=== PATIENT | female | born 1935 | race Caucasian/White ===

== ENCOUNTER → 2017-01-03 | Outpatient (CLI) | payer OTHER ==
[~2017-01-03] MED LIST: ALLO300T PO; ALPR0.254 PO; ASCO500T6 PO; ASCO500T8 PO; ASPI-650 PO; ATOR40TA78 PO; CEFD300C2 PO; CIPR500T87 PO; CLOP75TA PO; COLC0.6T37 PO; DOCU-30 PO; ENOX40SY4 SQ; FERR325T20 PO; HYDR-3138 PO; HYDR-3241 PO; LORA-446 PO; LOVA20TA2 PO; METF500T4 PO; METH16TA2 PO; METO50TA82 PO; METR500T PO; NAPR220C2 PO; OMEP-110 PO; OXYC-229 PO; PANT40TA3 PO; PANT40TA5 PO; PRED10TA PO; PRED20TA PO; SENN1TAB7 PO; TRAM-28 PO; ZOLP6.253 PO
== END | disposition home or self-care (01) ==
LOC: CARD 13:54
PROVIDERS: ATTEND Internal Medicine Pulmonary Disease
DX: R06.00 Dyspnea, unspecified (principal)
CPT/HCPCS: 94060; 94726; 94729

== ENCOUNTER 2017-03-05 14:51 | Inpatient (IN) | payer OTHER ==
[~2017-03-05] VITALS: Ht 154.9 cm; Wt 80.8 kg
[~2017-03-05 14:51] MED LIST changes: +AMLO5TAB2 PO; +BUPR-173 PO; -CEFD300C2 PO; +CEFD300C37 PO; +GABA-826 PO; +HYDR-883 PO; +LACT1CAP24 PO; +NAPR500T3 PO; +NITR0.4T SL
[2017-03-05] MEDS ORDERED: SODIUM CHLORIDE 0.9% 1,000 ML IV ONE (15:19)
[2017-03-05] MEDS ORDERED: SODIUM CHLORIDE FLUSH 10ML SYR IVF ONE (15:30)
[2017-03-05] MEDS ORDERED: ONDANSETRON 2MG/ML, 2ML IVPush ONE (15:30)
[2017-03-05] MEDS ORDERED: PANTOPRAZOLE 40 MG IV IVPush ONE (15:30)
[2017-03-05] MEDS ORDERED: PANTOPRAZOLE 40 MG IV ONE (15:46)
[2017-03-05] MEDS ORDERED: MORPHINE SULFATE 4 MG/ML, 1ML ONE ×2 (15:46→17:39)
[2017-03-05] MEDS ORDERED: ONDANSETRON 2MG/ML, 2ML ONE (15:47)
[2017-03-05] MEDS: MORPHINE SULFATE 4 MG/ML, 1ML IVPush PRN ×2 (15:52→17:44)
[2017-03-05 15:53] LABS: BLOOD UREA NITROGEN 39 mg/dL (7-18)
[2017-03-05 15:55] LABS: ASPARTATE AMINO TRANSFERASE 18 U/L (15-37)
[2017-03-05] MEDS ORDERED: SULF1TAB3 PO (16:32)
[2017-03-05] MEDS ORDERED: OMNIPAQUE 350 MG/ML, 100ML BOTTLE ONE (16:47)
[2017-03-05] MEDS ORDERED: BISACODYL 10 MG SUPP PR PRN (18:00)
[2017-03-05] MEDS ORDERED: ONDANSETRON 2MG/ML, 2ML IVPush PRN (18:00)
[2017-03-05] MEDS: INSULIN ASPART 100 UNITS/ML, PEN SQ-INSULIN SCH ×2 (18:00→21:00)
[2017-03-05] MEDS ORDERED: ACETAMINOPHEN 325 MG TABLET PO PRN (18:00)
[2017-03-05] MEDS ORDERED: PANTOPRAZOLE 40 MG IV IVPush SCH (18:00)
[2017-03-05] MEDS ORDERED: HYDROcodone/APAP 5/325 TABLET PO PRN (18:00)
[2017-03-05] MEDS ORDERED: NITROGLYCERIN 0.4 MG BOTTLE (25 TABS) SL PRN (18:00)
[2017-03-05 19:19] VITALS: BP 135/77
[2017-03-05 20:00] VITALS: BP 135/77
[2017-03-05] MEDS: SODIUM CHLORIDE 0.9% 1,000 ML IV SCH (20:31)
[2017-03-05] MEDS: METOPROLOL TARTRATE 50 MG TABLET PO SCH (20:32)
[2017-03-05] MEDS: LOVASTATIN 40 MG TABLET PO SCH (20:32)
[2017-03-05] MEDS: LACTOBACILLUS CHEW TABLET PO SCH (20:32)
[2017-03-05] MEDS ORDERED: CEFDINIR 300 MG CAPSULE PO SCH (21:00)
[2017-03-05] MEDS: ZOLPIDEM 5MG TABLET PO SCH (21:22)
[2017-03-06] VITALS (7 sets, daily range): BP systolic 111–153; BP diastolic 58–78
[2017-03-06 06:15] LABS: ASPARTATE AMINO TRANSFERASE 15 U/L (15-37); BLOOD UREA NITROGEN 34 mg/dL (7-18)
[2017-03-06] MEDS: INSULIN ASPART 100 UNITS/ML, PEN SQ-INSULIN SCH ×4 (07:00→21:32)
[2017-03-06] MEDS: LACTOBACILLUS CHEW TABLET PO SCH ×2 (08:57→20:35)
[2017-03-06] MEDS: COLCHICINE 0.6 MG TABLET PO SCH (08:57)
[2017-03-06] MEDS: BUPROPION SR 100 MG TABLET PO SCH (08:57)
[2017-03-06] MEDS: AMLODIPINE 5 MG TABLET PO SCH (08:57)
[2017-03-06] MEDS: GABAPENTIN 100 MG CAPSULE PO SCH (08:57)
[2017-03-06] MEDS: METOPROLOL TARTRATE 50 MG TABLET PO SCH ×2 (08:58→20:37)
[2017-03-06] MEDS: ALLOPURINOL 300 MG TABLET PO SCH (08:58)
[2017-03-06] MEDS ORDERED: methylPREDNISolone SOD SUCC 125 MG/2 ML IVPush ONE (09:00)
[2017-03-06] MEDS ORDERED: DIPHENHYDRAMINE 50 MG/ML, 1ML IVPush ONE (09:00)
[2017-03-06] MEDS: SODIUM CHLORIDE 0.9% 1,000 ML IV SCH (09:02)
[2017-03-06] MEDS: CEFTRIAXONE PMX 1GM/50ML 50 ML IV SCH ×2 (09:06→20:12)
[2017-03-06] MEDS: PANTOPRAZOLE 80 MG in SODIUM CHLORIDE 0.9% 100 ML IV SCH ×2 (10:23→21:32)
[2017-03-06] MEDS ORDERED: PHENYLEPHRINE 10 MG/ML ONE (13:52)
[2017-03-06] MEDS ORDERED: SUCCINYLCHOLINE 20 MG/ML, 10ML ONE (13:52)
[2017-03-06] MEDS ORDERED: PROPOFOL 10 MG/ML, 20ML ONE (13:52)
[2017-03-06] MEDS ORDERED: FENTANYL PF 100 MCG/2ML ONE (15:20)
[2017-03-06] MEDS ORDERED: FENTANYL PF 100 MCG/2ML IV PRN (15:30)
[2017-03-06] MEDS: LOVASTATIN 40 MG TABLET PO SCH (20:35)
[2017-03-06] MEDS: ZOLPIDEM 5MG TABLET PO SCH (21:35)
[2017-03-07 01:47] VITALS: BP 158/71
[2017-03-07 05:55] LABS: BLOOD UREA NITROGEN 17 mg/dL (7-18)
[2017-03-07 06:46] VITALS: BP 114/58
[2017-03-07] MEDS: INSULIN ASPART 100 UNITS/ML, PEN SQ-INSULIN SCH ×2 (07:00→11:00)
[2017-03-07] MEDS: CEFTRIAXONE PMX 1GM/50ML 50 ML IV SCH (07:55)
[2017-03-07] MEDS: METOPROLOL TARTRATE 50 MG TABLET PO SCH (07:56)
[2017-03-07] MEDS: LACTOBACILLUS CHEW TABLET PO SCH (07:56)
[2017-03-07] MEDS: AMLODIPINE 5 MG TABLET PO SCH (07:56)
[2017-03-07] MEDS: COLCHICINE 0.6 MG TABLET PO SCH (07:56)
[2017-03-07] MEDS: GABAPENTIN 100 MG CAPSULE PO SCH (07:56)
[2017-03-07] MEDS: BUPROPION SR 100 MG TABLET PO SCH (07:57)
[2017-03-07] MEDS: ALLOPURINOL 300 MG TABLET PO SCH (07:57)
[2017-03-07] MEDS: PANTOPRAZOLE 80 MG in SODIUM CHLORIDE 0.9% 100 ML IV SCH (09:11)
[2017-03-07] MEDS: SODIUM CHLORIDE 0.9% 1,000 ML IV SCH (11:16)
[2017-03-07] MEDS ORDERED: PANTOPRAZOLE 40 MG IV IVPush SCH (12:00)
[2017-03-07 12:42] VITALS: BP 139/84
[2017-03-07] MEDS ORDERED: PANT40TA5 PO (13:45)
[2017-03-07] MEDS ORDERED: PANTOPROZOLE 40MG TABLET PO SCH (21:00)
== END 2017-03-07 16:09 | disposition home or self-care (01) | DRG 377 ==
LOC: ED 15:17 → EDIP 17:07 → 3NE 18:05
PROVIDERS: ADMIT Internal Medicine
PROC: 0DB58ZX Excision of Esophagus, Via Natural or Artificial Opening Endoscopic, Diagnostic (ICD-10-PCS; 2017-03-06)
PROC: 0DB68ZX Excision of Stomach, Via Natural or Artificial Opening Endoscopic, Diagnostic (ICD-10-PCS; 2017-03-06)
PROC: 30233N1 Transfusion of Nonautologous Red Blood Cells into Peripheral Vein, Percutaneous Approach (ICD-10-PCS; principal; 2017-03-06 13:30)
DX: K26.4 Chronic or unspecified duodenal ulcer with hemorrhage (principal); N17.0 Acute kidney failure with tubular necrosis; E44.1 Mild protein-calorie malnutrition; D62 Acute posthemorrhagic anemia; J96.10 Chronic respiratory failure, unspecified whether with hypoxia or hypercapnia; N39.0 Urinary tract infection, site not specified; D47.3 Essential (hemorrhagic) thrombocythemia; D75.89 Other specified diseases of blood and blood-forming organs; E11.9 Type 2 diabetes mellitus without complications; E78.00 Pure hypercholesterolemia, unspecified; I11.0 Hypertensive heart disease with heart failure; I25.10 Atherosclerotic heart disease of native coronary artery without angina pectoris; I50.9 Heart failure, unspecified; J44.9 Chronic obstructive pulmonary disease, unspecified; K20.0 Eosinophilic esophagitis; M10.9 Gout, unspecified; M19.90 Unspecified osteoarthritis, unspecified site; N20.0 Calculus of kidney; Z66 Do not resuscitate; Z79.02 Long term (current) use of antithrombotics/antiplatelets; Z86.73 Personal history of transient ischemic attack (TIA), and cerebral infarction without residual deficits; I25.2 Old myocardial infarction; Z87.11 Personal history of peptic ulcer disease; Z87.891 Personal history of nicotine dependence; Z95.5 Presence of coronary angioplasty implant and graft; Z99.81 Dependence on supplemental oxygen; Z68.33 Body mass index [BMI] 33.0-33.9, adult; Z90.89 Acquired absence of other organs; Z90.49 Acquired absence of other specified parts of digestive tract; K22.2 Esophageal obstruction
CPT/HCPCS: 36415; 71010; 74177; 80048; 80053; 81001; 82728; 82962; 83540; 83550; 85025; 85610; 85730; 86677; 86850; 86870; 86900; 86902; 86922; 86923; 88305; 93005; 96361; 96374; 96375; J0696; J1815; J2405; J2704; Q9967; C9113; J0330; J1200; J2370; J2930; J7030; P9016

== ENCOUNTER 2017-03-09 19:29 | Emergency (ER) | payer OTHER ==
[~2017-03-09] VITALS: Ht 154.9 cm; Wt 75.0 kg
[~2017-03-09 19:29] MED LIST changes: +SULF1TAB3 PO
[2017-03-09 20:32] LABS: ASPARTATE AMINO TRANSFERASE 37 U/L (15-37); BLOOD UREA NITROGEN 8 mg/dL (7-18)
[2017-03-09 20:42] LABS: IS PT STATUS REG ER OR PRE ER? YES
[2017-03-09] MEDS ORDERED: ONDANSETRON 2MG/ML, 2ML ONE (21:25)
[2017-03-09] MEDS ORDERED: LORazepam 2 MG/ML, 1ML ONE (21:25)
[2017-03-09] MEDS ORDERED: FUROSEMIDE 20 MG/2 ML ONE (21:25)
[2017-03-09] MEDS ORDERED: LORazepam 2 MG/ML, 1ML IVPush ONE (21:30)
[2017-03-09] MEDS ORDERED: FUROSEMIDE 40 MG/4 ML IV ONE (21:30)
[2017-03-09] MEDS ORDERED: ONDANSETRON 2MG/ML, 2ML IVPush ONE (21:30)
[2017-03-09 22:00] VITALS: BP 150/80
== END 2017-03-09 22:20 | disposition home or self-care (01) ==
LOC: ED 21:03
DX: R06.00 Dyspnea, unspecified (principal); R60.0 Localized edema; F41.1 Generalized anxiety disorder; E78.00 Pure hypercholesterolemia, unspecified; I10 Essential (primary) hypertension; G45.9 Transient cerebral ischemic attack, unspecified; N39.0 Urinary tract infection, site not specified; M10.9 Gout, unspecified; J44.9 Chronic obstructive pulmonary disease, unspecified; Z87.19 Personal history of other diseases of the digestive system; Z99.81 Dependence on supplemental oxygen
CPT/HCPCS: 36415; 71010; 80053; 83880; 84484; 85025; 93005; 96374; 96375; 99285; J1940; J2060; J2405

== ENCOUNTER 2017-03-18 02:53 | Inpatient (IN) | payer OTHER ==
[~2017-03-18] VITALS: Ht 154.9 cm; Wt 73.5 kg
[2017-03-18] MEDS ORDERED: CLOP75TA PO (03:35)
[2017-03-18] MEDS ORDERED: ONDA4TAB10 PO (03:35)
[2017-03-18 03:46] LABS: BLOOD UREA NITROGEN 29 mg/dL (7-18)
[2017-03-18] MEDS ORDERED: SODIUM CHLORIDE 0.9%, 500ML IVBOLUS ONE (04:00)
[2017-03-18] MEDS ORDERED: CEFTRIAXONE PMX 1GM/50ML 50 ML ONE (04:37)
[2017-03-18] MEDS ORDERED: POTASSIUM CHLORIDE 20 MEQ in SODIUM CHLORIDE 0.9% 1,000 ML IV ONE (04:40)
[2017-03-18] MEDS ORDERED: CEFTRIAXONE PMX 1GM/50ML 50 ML IV ONE (05:00)
[2017-03-18 05:30] VITALS: BP 105/62
[2017-03-18] MEDS ORDERED: morphine SULFATE 10 MG/ML, 1ML IVPush PRN (06:30)
[2017-03-18] MEDS ORDERED: NITROGLYCERIN 0.4 MG BOTTLE (25 TABS) SL PRN (06:30)
[2017-03-18] MEDS: CEFTRIAXONE PMX 1GM/50ML 50 ML IV SCH (06:30)
[2017-03-18] MEDS ORDERED: DOCUSATE 100 MG CAPSULE PO PRN (06:30)
[2017-03-18] MEDS ORDERED: ONDANSETRON 2MG/ML, 2ML IVPush PRN (06:30)
[2017-03-18] MEDS ORDERED: POLYETHYLENE GLYCOL 17 GM PACKET PO PRN (06:30)
[2017-03-18] MEDS ORDERED: ACETAMINOPHEN 325 MG TABLET PO PRN (06:30)
[2017-03-18] MEDS: HEPARIN 5,000 UNITS/ML, 1ML SQ SCH ×3 (06:41→21:41)
[2017-03-18] MEDS: SODIUM CHLORIDE 0.9% 1,000 ML IV SCH ×2 (06:41→17:48)
[2017-03-18] MEDS: INSULIN ASPART 100 UNITS/ML, PEN SQ-INSULIN SCH ×4 (07:00→21:00)
[2017-03-18 07:08] VITALS: BP 91/55
[2017-03-18] MEDS: METOPROLOL TARTRATE 50 MG TABLET PO SCH ×2 (08:30→21:41)
[2017-03-18] MEDS: SENNA/DOCUSATE TABLET PO SCH (08:31)
[2017-03-18] MEDS ORDERED: AMLODIPINE 5 MG TABLET PO SCH (09:00)
[2017-03-18] MEDS ORDERED: FAMOTIDINE 20 MG TABLET PO SCH ×2 (09:00→21:00)
[2017-03-18] MEDS ORDERED: COLCHICINE 0.6 MG TABLET PO SCH (09:00)
[2017-03-18] MEDS ORDERED: ALLOPURINOL 300 MG TABLET PO SCH (09:00)
[2017-03-18] MEDS: BUPROPION SR 100 MG TABLET PO SCH (09:36)
[2017-03-18] MEDS: GABAPENTIN 100 MG CAPSULE PO SCH (09:36)
[2017-03-18] MEDS: CLOPIDOGREL 75 MG TABLET PO SCH (09:36)
[2017-03-18] MEDS: HYDROcodone/APAP 5/325 TABLET PO PRN (09:37)
[2017-03-18 12:20] VITALS: BP 104/65
[2017-03-18] MEDS: metroNIDAZOLE 500 MG TABLET PO SCH ×2 (17:48→21:41)
[2017-03-18 18:17] VITALS: BP 144/77
[2017-03-18] MEDS ORDERED: ZOLPIDEM 5MG TABLET PO SCH (21:00)
[2017-03-19] VITALS (8 sets, daily range): BP systolic 133–181; BP diastolic 71–97
[2017-03-19 05:10] LABS: BLOOD UREA NITROGEN 19 mg/dL (7-18)
[2017-03-19] MEDS: HEPARIN 5,000 UNITS/ML, 1ML SQ SCH ×3 (05:18→23:03)
[2017-03-19] MEDS: CEFTRIAXONE PMX 1GM/50ML 50 ML IV SCH (05:19)
[2017-03-19] MEDS: metroNIDAZOLE 500 MG TABLET PO SCH ×4 (05:19→23:03)
[2017-03-19] MEDS: INSULIN ASPART 100 UNITS/ML, PEN SQ-INSULIN SCH ×4 (07:00→21:00)
[2017-03-19] MEDS ORDERED: MAGNESIUM SULFATE PMX 4GM/100M 100 ML IV ONE (07:30)
[2017-03-19] MEDS: SENNA/DOCUSATE TABLET PO SCH (08:25)
[2017-03-19] MEDS: GABAPENTIN 100 MG CAPSULE PO SCH (08:26)
[2017-03-19] MEDS: BUPROPION SR 100 MG TABLET PO SCH (08:26)
[2017-03-19] MEDS: METOPROLOL TARTRATE 50 MG TABLET PO SCH ×2 (08:26→21:28)
[2017-03-19] MEDS: CLOPIDOGREL 75 MG TABLET PO SCH (08:26)
[2017-03-19] MEDS: LABETALOL 5MG/ML, 20ML IVPush PRN (17:28)
[2017-03-19] MEDS: metFORMIN 500 MG TABLET PO SCH (21:29)
[2017-03-19] MEDS: PANTOPROZOLE 40MG TABLET PO SCH (21:29)
[2017-03-19] MEDS: HYDROcodone/APAP 5/325 TABLET PO PRN (21:29)
[2017-03-20] MEDS: metroNIDAZOLE 500 MG TABLET PO SCH ×2 (05:38→13:00)
[2017-03-20] MEDS: HEPARIN 5,000 UNITS/ML, 1ML SQ SCH ×2 (05:39→16:54)
[2017-03-20 06:00] LABS: BLOOD UREA NITROGEN 9 mg/dL (7-18)
[2017-03-20 06:34] VITALS: BP 160/72
[2017-03-20] MEDS: INSULIN ASPART 100 UNITS/ML, PEN SQ-INSULIN SCH ×2 (07:00→12:59)
[2017-03-20] MEDS: SENNA/DOCUSATE TABLET PO SCH (09:00)
[2017-03-20 09:30] VITALS: BP 179/78
[2017-03-20] MEDS: PANTOPROZOLE 40MG TABLET PO SCH (09:46)
[2017-03-20] MEDS: METOPROLOL TARTRATE 50 MG TABLET PO SCH (09:46)
[2017-03-20] MEDS: metFORMIN 500 MG TABLET PO SCH (09:46)
[2017-03-20] MEDS: BUPROPION SR 100 MG TABLET PO SCH (09:46)
[2017-03-20] MEDS: GABAPENTIN 100 MG CAPSULE PO SCH (09:46)
[2017-03-20] MEDS: CLOPIDOGREL 75 MG TABLET PO SCH (09:46)
[2017-03-20 10:45] VITALS: BP 184/66
[2017-03-20] MEDS: LABETALOL 5MG/ML, 20ML IVPush PRN (10:51)
[2017-03-20] MEDS ORDERED: AMLODIPINE 5 MG TABLET PO SCH (12:00)
[2017-03-20 12:55] VITALS: BP 163/89
[2017-03-20] MEDS ORDERED: METR500T PO (16:09)
== END 2017-03-20 18:51 | disposition home or self-care (01) | DRG 371 ==
LOC: ED 03:11 → EDIP 04:40 → 4EST 05:48
PROVIDERS: ADMIT Family Medicine; ATTEND Family Medicine
PROC: 0T9B70Z Drainage of Bladder with Drainage Device, Via Natural or Artificial Opening (ICD-10-PCS; principal; 2017-03-18)
DX: A04.7 Enterocolitis due to Clostridium difficile (principal); E43 Unspecified severe protein-calorie malnutrition; N17.0 Acute kidney failure with tubular necrosis; N39.0 Urinary tract infection, site not specified; E03.9 Hypothyroidism, unspecified; E11.9 Type 2 diabetes mellitus without complications; E78.00 Pure hypercholesterolemia, unspecified; E78.5 Hyperlipidemia, unspecified; E86.0 Dehydration; Z66 Do not resuscitate; F41.9 Anxiety disorder, unspecified; I11.0 Hypertensive heart disease with heart failure; I25.10 Atherosclerotic heart disease of native coronary artery without angina pectoris; I50.9 Heart failure, unspecified; J44.9 Chronic obstructive pulmonary disease, unspecified; K21.9 Gastro-esophageal reflux disease without esophagitis; N20.0 Calculus of kidney; M10.9 Gout, unspecified; M47.9 Spondylosis, unspecified; W01.0XXA Fall on same level from slipping, tripping and stumbling without subsequent striking against object, initial encounter; Z96.641 Presence of right artificial hip joint; Z79.84 Long term (current) use of oral hypoglycemic drugs; Y92.009 Unspecified place in unspecified non-institutional (private) residence as the place of occurrence of the external cause; Y93.89 Activity, other specified; Y99.8 Other external cause status; Z86.73 Personal history of transient ischemic attack (TIA), and cerebral infarction without residual deficits; Z87.11 Personal history of peptic ulcer disease; Z87.891 Personal history of nicotine dependence; Z95.5 Presence of coronary angioplasty implant and graft; Z99.81 Dependence on supplemental oxygen; Z87.440 Personal history of urinary (tract) infections; Z90.49 Acquired absence of other specified parts of digestive tract; Z79.899 Other long term (current) drug therapy; Z72.89 Other problems related to lifestyle; Z68.30 Body mass index [BMI] 30.0-30.9, adult
CPT/HCPCS: 36415; 70450; 72125; 72190; 80048; 81001; 82040; 82962; 83735; 85025; 87086; 87324; 87493; 93005; 96361; 96365; J0696; J1644; J1815; J3475; J7030; J7040

== ENCOUNTER → 2017-04-12 | Outpatient (CLI) | payer OTHER ==
[~2017-04-12] MED LIST changes: +ONDA4TAB10 PO
== END | disposition home or self-care (01) ==
LOC: CFH 15:54
PROVIDERS: ATTEND Physical Medicine & Rehabilitation Pain Medicine
DX: M51.36 Other intervertebral disc degeneration, lumbar region (principal); M48.06 Spinal stenosis, lumbar region; M48.07 Spinal stenosis, lumbosacral region
CPT/HCPCS: 72148

== ENCOUNTER 2017-04-19 06:28 | Inpatient (IN) | payer OTHER ==
[~2017-04-19] VITALS: Ht 154.9 cm; Wt 74.0 kg
[2017-04-19] MEDS ORDERED: ONDANSETRON 2MG/ML, 2ML IVPush ONE (07:00)
[2017-04-19] MEDS ORDERED: SODIUM CHLORIDE 0.9% 1,000ML IVBOLUS ONE (07:00)
[2017-04-19] MEDS ORDERED: SODIUM CHLORIDE FLUSH 10ML SYR IVF ONE (07:00)
[2017-04-19] MEDS ORDERED: MORPHINE SULFATE 4 MG/ML, 1ML IVPush PRN (07:00)
[2017-04-19] MEDS ORDERED: MORPHINE SULFATE 4 MG/ML, 1ML ONE (07:41)
[2017-04-19] MEDS ORDERED: ONDANSETRON 2MG/ML, 2ML ONE (07:41)
[2017-04-19 09:04] LABS: HEMATOCRIT 36.6 % (34.6-47.8); HEMOGLOBIN 11.9 g/dL (11.7-16.4); WHITE BLOOD COUNT 14.5 x10^3/uL (3.4-10)
[2017-04-19 09:15] LABS: ASPARTATE AMINO TRANSFERASE 30 U/L (15-37); BLOOD UREA NITROGEN 10 mg/dL (7-18)
[2017-04-19] MEDS ORDERED: LABETALOL 5MG/ML, 20ML IVPush PRN (11:30)
[2017-04-19] MEDS ORDERED: VANCOMYCIN PER PHARMACY MC PRN (11:30)
[2017-04-19] MEDS ORDERED: DOCUSATE 100 MG CAPSULE PO PRN (11:30)
[2017-04-19] MEDS ORDERED: BISACODYL 10 MG SUPP PR PRN (11:30)
[2017-04-19] MEDS ORDERED: POLYETHYLENE GLYCOL 17 GM PACKET PO PRN (11:30)
[2017-04-19] MEDS ORDERED: ACETAMINOPHEN 325 MG TABLET PO PRN (11:30)
[2017-04-19] MEDS ORDERED: NITROGLYCERIN 0.4 MG BOTTLE (25 TABS) SL PRN (11:30)
[2017-04-19] MEDS ORDERED: DEXTROSE 50%, 50ML SYRINGE IVPush PRN (12:00)
[2017-04-19] MEDS ORDERED: DEXTROSE 4 GM TAB.CHEW PO PRN (12:00)
[2017-04-19] MEDS ORDERED: GLUCAGON 1 MG IM PRN (12:00)
[2017-04-19] MEDS ORDERED: CEFTRIAXONE PMX 1GM/50ML 50 ML ONE (12:02)
[2017-04-19] MEDS: CEFTRIAXONE PMX 1GM/50ML 50 ML IV SCH (12:10)
[2017-04-19] MEDS ORDERED: OMNIPAQUE 350 MG/ML, 100ML BOTTLE ONE (12:42)
[2017-04-19] MEDS ORDERED: PHARMACOKINETIC CONSULTATION MC ONE ×2 (14:30)
[2017-04-19 14:33] VITALS: BP 143/61
[2017-04-19 14:37] VITALS: BP 148/68
[2017-04-19] MEDS ORDERED: VANCOMYCIN 1,400 MG in SODIUM CHLORIDE 0.9% 250 ML IV SCH (15:00)
[2017-04-19] MEDS: INSULIN ASPART 100 UNITS/ML, PEN SQ-INSULIN SCH ×2 (16:00→20:51)
[2017-04-19] MEDS: SODIUM CHLORIDE 0.9% 1,000 ML IV SCH (18:34)
[2017-04-19 19:30] VITALS: BP 137/64
[2017-04-19] MEDS: ONDANSETRON 2MG/ML, 2ML IVPush PRN (20:38)
[2017-04-19] MEDS: METOPROLOL TARTRATE 50 MG TABLET PO SCH (21:01)
[2017-04-19] MEDS: SODIUM CHLORIDE FLUSH 10ML SYR IVF SCH (21:01)
[2017-04-19] MEDS: ZOLPIDEM 5MG TABLET PO SCH (21:01)
[2017-04-19] MEDS: LOVASTATIN 40 MG TABLET PO SCH (21:02)
[2017-04-19] MEDS: HYDROcodone/APAP 5/325 TABLET PO PRN (21:02)
[2017-04-19] MEDS: morphine SULFATE 10 MG/ML, 1ML IVPush PRN (22:48)
[2017-04-20 01:37] VITALS: BP 134/77
[2017-04-20] MEDS: ONDANSETRON 2MG/ML, 2ML IVPush PRN (03:28)
[2017-04-20] MEDS: morphine SULFATE 10 MG/ML, 1ML IVPush PRN (03:28)
[2017-04-20 05:29] LABS: HEMATOCRIT 32.7 % (34.6-47.8); HEMOGLOBIN 10.5 g/dL (11.7-16.4); WHITE BLOOD COUNT 10.3 x10^3/uL (3.4-10)
[2017-04-20 05:37] LABS: BLOOD UREA NITROGEN 7 mg/dL (7-18)
[2017-04-20] MEDS: INSULIN ASPART 100 UNITS/ML, PEN SQ-INSULIN SCH ×4 (07:00→21:00)
[2017-04-20 07:41] VITALS: BP 131/77
[2017-04-20] MEDS: SODIUM CHLORIDE 0.9% 1,000 ML IV SCH (08:32)
[2017-04-20] MEDS: AMLODIPINE 5 MG TABLET PO SCH (08:34)
[2017-04-20] MEDS: GABAPENTIN 100 MG CAPSULE PO SCH (08:34)
[2017-04-20] MEDS: BUPROPION SR 100 MG TABLET PO SCH (08:34)
[2017-04-20] MEDS: CLOPIDOGREL 75 MG TABLET PO SCH (08:34)
[2017-04-20] MEDS: METOPROLOL TARTRATE 50 MG TABLET PO SCH ×2 (08:34→21:11)
[2017-04-20] MEDS: SODIUM CHLORIDE FLUSH 10ML SYR IVF SCH ×2 (08:34→21:12)
[2017-04-20] MEDS: ALLOPURINOL 300 MG TABLET PO SCH (08:34)
[2017-04-20] MEDS: CEFTRIAXONE PMX 1GM/50ML 50 ML IV SCH (11:38)
[2017-04-20 12:54] VITALS: BP 135/76
[2017-04-20] MEDS: HYDROcodone/APAP 5/325 TABLET PO PRN (13:31)
[2017-04-20] MEDS ORDERED: VANCOMYCIN 1,400 MG in SODIUM CHLORIDE 0.9% 250 ML IV SCH (17:00)
[2017-04-20] MEDS ORDERED: DIPHENHYDRAMINE 50 MG/ML, 1ML IVPush ONE (17:00)
[2017-04-20 19:30] VITALS: BP 132/86
[2017-04-20] MEDS: LOVASTATIN 40 MG TABLET PO SCH (21:12)
[2017-04-20] MEDS: ZOLPIDEM 5MG TABLET PO SCH (21:12)
[2017-04-21 01:11] VITALS: BP 128/74
[2017-04-21] MEDS ORDERED: VANCOMYCIN 1,400 MG in SODIUM CHLORIDE 0.9% 250 ML IV SCH ×2 (03:00→09:59)
[2017-04-21 04:42] LABS: HEMATOCRIT 32.2 % (34.6-47.8); HEMOGLOBIN 10.2 g/dL (11.7-16.4); WHITE BLOOD COUNT 8.1 x10^3/uL (3.4-10)
[2017-04-21 04:47] LABS: BLOOD UREA NITROGEN 4 mg/dL (7-18)
[2017-04-21] MEDS: HYDROcodone/APAP 5/325 TABLET PO PRN ×3 (05:57→21:47)
[2017-04-21] MEDS: INSULIN ASPART 100 UNITS/ML, PEN SQ-INSULIN SCH ×4 (07:00→19:57)
[2017-04-21 07:20] VITALS: BP 149/70
[2017-04-21] MEDS: METOPROLOL TARTRATE 50 MG TABLET PO SCH ×2 (08:52→19:51)
[2017-04-21] MEDS: CLOPIDOGREL 75 MG TABLET PO SCH (08:52)
[2017-04-21] MEDS: BUPROPION SR 100 MG TABLET PO SCH (08:56)
[2017-04-21] MEDS: GABAPENTIN 100 MG CAPSULE PO SCH (08:56)
[2017-04-21] MEDS: AMLODIPINE 5 MG TABLET PO SCH (08:56)
[2017-04-21] MEDS: ALLOPURINOL 300 MG TABLET PO SCH (08:56)
[2017-04-21] MEDS: SODIUM CHLORIDE FLUSH 10ML SYR IVF SCH ×2 (08:59→19:50)
[2017-04-21] MEDS: CEFTRIAXONE PMX 1GM/50ML 50 ML IV SCH ×2 (11:43→12:48)
[2017-04-21 13:15] VITALS: BP 121/71
[2017-04-21 18:45] VITALS: BP 126/78
[2017-04-21] MEDS: ZOLPIDEM 5MG TABLET PO SCH (19:51)
[2017-04-21] MEDS: LOVASTATIN 40 MG TABLET PO SCH (19:51)
[2017-04-22 03:00] VITALS: BP 153/80
[2017-04-22] MEDS: ONDANSETRON 2MG/ML, 2ML IVPush PRN (03:41)
[2017-04-22] MEDS ORDERED: VANCOMYCIN 1,400 MG in SODIUM CHLORIDE 0.9% 250 ML IV SCH (05:00)
[2017-04-22] MEDS ORDERED: DIPHENHYDRAMINE 50 MG/ML, 1ML IVPush SCH (05:00)
[2017-04-22 05:40] LABS: HEMATOCRIT 32.1 % (34.6-47.8); HEMOGLOBIN 10.4 g/dL (11.7-16.4); WHITE BLOOD COUNT 7.6 x10^3/uL (3.4-10)
[2017-04-22 06:01] LABS: BLOOD UREA NITROGEN 4 mg/dL (7-18)
[2017-04-22] MEDS: INSULIN ASPART 100 UNITS/ML, PEN SQ-INSULIN SCH ×4 (06:27→21:00)
[2017-04-22] MEDS ORDERED: POTASSIUM CHLORIDE 20 MEQ TAB.ER.PRT PO ONE (07:00)
[2017-04-22 08:27] VITALS: BP 129/75
[2017-04-22] MEDS: CLOPIDOGREL 75 MG TABLET PO SCH (08:31)
[2017-04-22] MEDS: GABAPENTIN 100 MG CAPSULE PO SCH (08:31)
[2017-04-22] MEDS: BUPROPION SR 100 MG TABLET PO SCH (08:31)
[2017-04-22] MEDS: ALLOPURINOL 300 MG TABLET PO SCH (08:31)
[2017-04-22] MEDS: AMLODIPINE 5 MG TABLET PO SCH (08:31)
[2017-04-22] MEDS: HYDROcodone/APAP 5/325 TABLET PO PRN ×2 (08:31→12:15)
[2017-04-22] MEDS: SODIUM CHLORIDE FLUSH 10ML SYR IVF SCH ×2 (08:32→21:50)
[2017-04-22] MEDS: METOPROLOL TARTRATE 50 MG TABLET PO SCH ×2 (08:32→21:51)
[2017-04-22] MEDS: CEFTRIAXONE PMX 1GM/50ML 50 ML IV SCH (12:15)
[2017-04-22 13:49] VITALS: BP 144/85
[2017-04-22 19:34] VITALS: BP 134/76
[2017-04-22] MEDS: LOVASTATIN 40 MG TABLET PO SCH (21:54)
[2017-04-22] MEDS: ZOLPIDEM 5MG TABLET PO SCH (21:56)
[2017-04-23 03:59] VITALS: BP 138/74
[2017-04-23 05:47] LABS: HEMATOCRIT 33.2 % (34.6-47.8); HEMOGLOBIN 10.6 g/dL (11.7-16.4); WHITE BLOOD COUNT 9.9 x10^3/uL (3.4-10)
[2017-04-23 05:50] LABS: BLOOD UREA NITROGEN 4 mg/dL (7-18)
[2017-04-23] MEDS: INSULIN ASPART 100 UNITS/ML, PEN SQ-INSULIN SCH ×2 (07:00→11:00)
[2017-04-23 08:29] VITALS: BP 139/80
[2017-04-23] MEDS: METOPROLOL TARTRATE 50 MG TABLET PO SCH (08:50)
[2017-04-23] MEDS: BUPROPION SR 100 MG TABLET PO SCH (08:50)
[2017-04-23] MEDS: GABAPENTIN 100 MG CAPSULE PO SCH (08:50)
[2017-04-23] MEDS: SODIUM CHLORIDE FLUSH 10ML SYR IVF SCH (08:50)
[2017-04-23] MEDS: ALLOPURINOL 300 MG TABLET PO SCH (08:50)
[2017-04-23] MEDS: CLOPIDOGREL 75 MG TABLET PO SCH (08:50)
[2017-04-23] MEDS: AMLODIPINE 5 MG TABLET PO SCH (08:50)
[2017-04-23] MEDS ORDERED: SULF1TAB24 PO (11:38)
[2017-04-23] MEDS ORDERED: CEFD300C37 PO (11:38)
[2017-04-23] MEDS: CEFTRIAXONE PMX 1GM/50ML 50 ML IV SCH (11:40)
[2017-04-23] MEDS: HYDROcodone/APAP 5/325 TABLET PO PRN (11:40)
[2017-04-23 13:45] VITALS: BP 138/75
== END 2017-04-23 13:50 | disposition home or self-care (01) | DRG 872 ==
LOC: ED 07:01 → EDIP 10:34 → 4NOR 13:51
PROVIDERS: ADMIT Internal Medicine; ATTEND Internal Medicine
DX: A41.9 Sepsis, unspecified organism (principal); E44.0 Moderate protein-calorie malnutrition; J96.10 Chronic respiratory failure, unspecified whether with hypoxia or hypercapnia; N39.0 Urinary tract infection, site not specified; L03.317 Cellulitis of buttock; Z68.30 Body mass index [BMI] 30.0-30.9, adult; B96.20 Unspecified Escherichia coli [E. coli] as the cause of diseases classified elsewhere; E11.43 Type 2 diabetes mellitus with diabetic autonomic (poly)neuropathy; E11.65 Type 2 diabetes mellitus with hyperglycemia; E78.00 Pure hypercholesterolemia, unspecified; E78.5 Hyperlipidemia, unspecified; F41.1 Generalized anxiety disorder; I11.0 Hypertensive heart disease with heart failure; I25.10 Atherosclerotic heart disease of native coronary artery without angina pectoris; I25.2 Old myocardial infarction; I50.9 Heart failure, unspecified; J44.9 Chronic obstructive pulmonary disease, unspecified; K21.9 Gastro-esophageal reflux disease without esophagitis; K31.84 Gastroparesis; M10.9 Gout, unspecified; N20.0 Calculus of kidney; Z66 Do not resuscitate; Z79.84 Long term (current) use of oral hypoglycemic drugs; Z86.73 Personal history of transient ischemic attack (TIA), and cerebral infarction without residual deficits; Z87.11 Personal history of peptic ulcer disease; Z87.891 Personal history of nicotine dependence; Z95.5 Presence of coronary angioplasty implant and graft
CPT/HCPCS: 36415; 74000; 74022; 74177; 80048; 80053; 81001; 82962; 83605; 83690; 83880; 84145; 85025; 85610; 85730; 87040; 87077; 87086; 87186; 87324; 89055; 93005; 96361; 96374; 96375; J0696; J2405; J3370; Q9967; J1200; J2270; J7030; J7050

== ENCOUNTER 2017-05-01 08:31 | Inpatient (IN) | payer OTHER ==
[~2017-05-01] VITALS: Ht 154.9 cm; Wt 76.9 kg
[~2017-05-01 08:31] MED LIST changes: +DOCU-131 PO; -DOCU-30 PO; +FERR325T18 PO; -FERR325T20 PO; -HYDR-3138 PO; +HYDR-3237 PO; -OXYC-229 PO; +OXYC-307 PO; +SULF-169 PO; +SULF1TAB24 PO; -SULF1TAB3 PO; -TRAM-28 PO; +TRAM-47 PO
[2017-05-01] MEDS ORDERED: PANTOPRAZOLE 80 MG in SODIUM CHLORIDE 0.9% 50 ML IVPB ONE (09:15)
[2017-05-01] MEDS ORDERED: ONDANSETRON 2MG/ML, 2ML ONE (09:24)
[2017-05-01] MEDS ORDERED: SODIUM CHLORIDE FLUSH 10ML SYR IVF ONE (09:30)
[2017-05-01] MEDS ORDERED: ONDANSETRON 2MG/ML, 2ML IVPush ONE (09:30)
[2017-05-01] MEDS ORDERED: SODIUM CHLORIDE 0.9% 1,000ML IVBOLUS ONE (09:30)
[2017-05-01 09:37] LABS: HEMATOCRIT 29.2 % (34.6-47.8); HEMOGLOBIN 9.4 g/dL (11.7-16.4); WHITE BLOOD COUNT 10.4 x10^3/uL (3.4-10)
[2017-05-01 09:51] LABS: ASPARTATE AMINO TRANSFERASE 28 U/L (15-37); BLOOD UREA NITROGEN 16 mg/dL (7-18)
[2017-05-01] MEDS: PANTOPRAZOLE 80 MG in SODIUM CHLORIDE 0.9% 100 ML IV SCH ×3 (10:37→21:43)
[2017-05-01] MEDS ORDERED: ONDANSETRON 2MG/ML, 2ML IVPush PRN (13:30)
[2017-05-01] MEDS ORDERED: morphine SULFATE 10 MG/ML, 1ML IVPush PRN (13:30)
[2017-05-01 14:38] VITALS: BP 163/74
[2017-05-01] MEDS: LACTATED RINGERS 1,000 ML IV SCH (15:29)
[2017-05-01 16:25] LABS: HEMATOCRIT 28.5 % (34.6-47.8); HEMOGLOBIN 9.2 g/dL (11.7-16.4)
[2017-05-01] MEDS ORDERED: ALBUTEROL/IPRATROPIUM 2.5MG/0.5MG, 3 ML ONE (16:41)
[2017-05-01] MEDS: HYDROcodone/APAP 5/325 TABLET PO PRN ×2 (17:56→21:18)
[2017-05-01] MEDS ORDERED: LIDOCAINE 1%, 20ML ONE (18:34)
[2017-05-01 18:35] VITALS: BP 137/52
[2017-05-01] MEDS: ALBUTEROL/IPRATROPIUM 2.5MG/0.5MG, 3 ML NPPB SCH (20:00)
[2017-05-01] MEDS ORDERED: HYDROcodone/APAP 5/325 TABLET PO ONE (20:30)
[2017-05-01 22:35] LABS: HEMATOCRIT 26.1 % (34.6-47.8); HEMOGLOBIN 8.3 g/dL (11.7-16.4)
[2017-05-02 02:00] VITALS: BP 123/57
[2017-05-02 04:09] LABS: HEMATOCRIT 24.2 % (34.6-47.8); HEMOGLOBIN 7.6 g/dL (11.7-16.4)
[2017-05-02 04:14] LABS: ASPARTATE AMINO TRANSFERASE 22 U/L (15-37); BLOOD UREA NITROGEN 12 mg/dL (7-18)
[2017-05-02] MEDS: ALBUTEROL/IPRATROPIUM 2.5MG/0.5MG, 3 ML NPPB SCH ×2 (06:43→20:43)
[2017-05-02] MEDS: LACTATED RINGERS 1,000 ML IV SCH (07:30)
[2017-05-02] MEDS: HYDROcodone/APAP 5/325 TABLET PO PRN ×2 (07:39→19:43)
[2017-05-02 07:43] VITALS: BP 142/85
[2017-05-02] MEDS ORDERED: PROPOFOL 10 MG/ML, 20ML ONE (09:00)
[2017-05-02] MEDS ORDERED: ONDANSETRON 2MG/ML, 2ML ONE (09:00)
[2017-05-02] MEDS ORDERED: METOPROLOL 1 MG/ML, 5ML ONE (09:00)
[2017-05-02] MEDS ORDERED: SUCCINYLCHOLINE 20 MG/ML, 10ML ONE (09:00)
[2017-05-02] MEDS ORDERED: FENTANYL PF 100 MCG/2ML ONE (09:02)
[2017-05-02] MEDS ORDERED: ACETAMINOPHEN 325 MG TABLET PO PRN (09:30)
[2017-05-02] MEDS ORDERED: FENTANYL PF 100 MCG/2ML IV PRN (09:30)
[2017-05-02] MEDS ORDERED: OXYcodone 5 MG/5 ML ORAL.SOL UDC PO PRN (09:30)
[2017-05-02] MEDS ORDERED: PROMETHAZINE 25 MG/ML, 1ML IV PRN (09:30)
[2017-05-02] MEDS ORDERED: HYDROmorphone 1 MG/ML, 1ML IV PRN (09:30)
[2017-05-02] MEDS ORDERED: hydrALAzine 20 MG/ML, 1ML IV PRN (09:30)
[2017-05-02] MEDS ORDERED: ONDANSETRON 2MG/ML, 2ML IVPush PRN (09:30)
[2017-05-02] MEDS ORDERED: HYDROcodone/APAP 7.5-325MG/15ML UDC PO PRN (09:30)
[2017-05-02] MEDS ORDERED: METOPROLOL 1 MG/ML, 5ML IV PRN (09:30)
[2017-05-02] MEDS ORDERED: LABETALOL 5MG/ML, 20ML IV PRN (09:30)
[2017-05-02] MEDS: PANTOPRAZOLE 80 MG in SODIUM CHLORIDE 0.9% 100 ML IV SCH ×2 (10:23→20:36)
[2017-05-02] MEDS: SUCRALFATE 1 GM TABLET PO SCH ×3 (10:40→20:01)
[2017-05-02] MEDS ORDERED: LACTATED RINGERS 1,000 ML IV SCH (13:00)
[2017-05-02 13:03] VITALS: BP 125/74
[2017-05-02] MEDS: metFORMIN 500 MG TABLET PO SCH (16:21)
[2017-05-02 20:00] VITALS: BP 149/76
[2017-05-02] MEDS: METOPROLOL TARTRATE 50 MG TABLET PO SCH (20:01)
[2017-05-02] MEDS: LACTOBACILLUS CHEW TABLET PO SCH (20:01)
[2017-05-02] MEDS ORDERED: LOVASTATIN 40 MG TABLET PO SCH (21:00)
[2017-05-03] MEDS: HYDROcodone/APAP 5/325 TABLET PO PRN (00:21)
[2017-05-03 02:00] VITALS: BP 133/58
[2017-05-03] MEDS: PANTOPRAZOLE 80 MG in SODIUM CHLORIDE 0.9% 100 ML IV SCH (05:56)
[2017-05-03 06:18] LABS: HEMATOCRIT 24.4 % (34.6-47.8); HEMOGLOBIN 7.8 g/dL (11.7-16.4); WHITE BLOOD COUNT 6.3 x10^3/uL (3.4-10)
[2017-05-03] MEDS ORDERED: HYDROcodone/APAP 10/325 MG TABLET PO PRN (08:00)
[2017-05-03 08:07] VITALS: BP 152/77
[2017-05-03] MEDS: LACTOBACILLUS CHEW TABLET PO SCH (08:08)
[2017-05-03] MEDS: SUCRALFATE 1 GM TABLET PO SCH ×3 (08:08→16:43)
[2017-05-03] MEDS: METOPROLOL TARTRATE 50 MG TABLET PO SCH (08:08)
[2017-05-03] MEDS: metFORMIN 500 MG TABLET PO SCH ×2 (08:08→16:44)
[2017-05-03] MEDS: ALBUTEROL/IPRATROPIUM 2.5MG/0.5MG, 3 ML NPPB SCH (08:41)
[2017-05-03] MEDS ORDERED: COLCHICINE 0.6 MG TABLET PO SCH (09:00)
[2017-05-03] MEDS ORDERED: AMLODIPINE 5 MG TABLET PO SCH (09:00)
[2017-05-03] MEDS ORDERED: ALLOPURINOL 300 MG TABLET PO SCH (09:00)
[2017-05-03] MEDS ORDERED: GABAPENTIN 100 MG CAPSULE PO SCH (09:00)
[2017-05-03] MEDS ORDERED: BUPROPION SR 100 MG TABLET PO SCH (09:00)
[2017-05-03 13:28] VITALS: BP 145/79
[2017-05-03] MEDS ORDERED: SUCR1TAB33 PO (17:07)
[2017-05-03] MEDS ORDERED: ALBUTEROL/IPRATROPIUM 2.5MG/0.5MG, 3 ML NPPB PRN (21:00)
== END 2017-05-03 17:40 | disposition home or self-care (01) | DRG 377 ==
LOC: ED 08:54 → EDIP 11:23 → 4WST 13:37
PROVIDERS: ADMIT Family Medicine; ATTEND Family Medicine
PROC: 02HV33Z Insertion of Infusion Device into Superior Vena Cava, Percutaneous Approach (ICD-10-PCS; principal; 2017-05-01)
PROC: B548ZZA Ultrasonography of Superior Vena Cava, Guidance (ICD-10-PCS; 2017-05-01)
PROC: 0DJ08ZZ Inspection of Upper Intestinal Tract, Via Natural or Artificial Opening Endoscopic (ICD-10-PCS; 2017-05-02)
DX: K26.4 Chronic or unspecified duodenal ulcer with hemorrhage (principal); E43 Unspecified severe protein-calorie malnutrition; E11.42 Type 2 diabetes mellitus with diabetic polyneuropathy; E11.65 Type 2 diabetes mellitus with hyperglycemia; D62 Acute posthemorrhagic anemia; I11.0 Hypertensive heart disease with heart failure; I50.9 Heart failure, unspecified; E05.90 Thyrotoxicosis, unspecified without thyrotoxic crisis or storm; E78.00 Pure hypercholesterolemia, unspecified; E11.43 Type 2 diabetes mellitus with diabetic autonomic (poly)neuropathy; E78.5 Hyperlipidemia, unspecified; F41.1 Generalized anxiety disorder; I25.10 Atherosclerotic heart disease of native coronary artery without angina pectoris; J44.9 Chronic obstructive pulmonary disease, unspecified; K21.9 Gastro-esophageal reflux disease without esophagitis; K31.84 Gastroparesis; M10.9 Gout, unspecified; Z66 Do not resuscitate; I25.2 Old myocardial infarction; Z86.73 Personal history of transient ischemic attack (TIA), and cerebral infarction without residual deficits; Z87.11 Personal history of peptic ulcer disease; Z87.891 Personal history of nicotine dependence; Z95.5 Presence of coronary angioplasty implant and graft; Z99.81 Dependence on supplemental oxygen; Z90.49 Acquired absence of other specified parts of digestive tract
CPT/HCPCS: 36415; 36569; 74020; 76937; 77001; 80053; 83605; 83690; 85014; 85018; 85025; 85610; 85730; 86850; 86870; 86900; 86902; 86922; 86923; 87324; 93005; 94640; 96361; 96365; 96375; J2405; J2704; J3010; J3490; J7620; C1751; C9113; J0330; J7030; J7120

== ENCOUNTER 2017-05-18 00:33 | Inpatient (IN) | payer OTHER ==
[~2017-05-18] VITALS: Ht 154.9 cm; Wt 72.8 kg
[~2017-05-18 00:33] MED LIST changes: +SUCR1TAB33 PO
[2017-05-18] MEDS ORDERED: SODIUM CHLORIDE FLUSH 10ML SYR IVF ONE (01:00)
[2017-05-18] MEDS ORDERED: KETOROLAC 30 MG/1 ML IVPush ONE (01:00)
[2017-05-18] MEDS ORDERED: HYDROcodone/APAP 5/325 TABLET PO ONE (01:00)
[2017-05-18] MEDS ORDERED: ONDANSETRON 2MG/ML, 2ML IVPush ONE (01:00)
[2017-05-18] MEDS ORDERED: HYDROcodone/APAP 5/325 TABLET ONE (01:12)
[2017-05-18] MEDS ORDERED: KETOROLAC 30 MG/1 ML ONE (01:12)
[2017-05-18] MEDS ORDERED: ONDANSETRON 2MG/ML, 2ML ONE (01:12)
[2017-05-18 01:21] LABS: HEMATOCRIT 29.1 % (34.6-47.8); HEMOGLOBIN 9.5 g/dL (11.7-16.4); WHITE BLOOD COUNT 23.1 x10^3/uL (3.4-10)
[2017-05-18 01:34] LABS: ASPARTATE AMINO TRANSFERASE 9 U/L (15-37); BLOOD UREA NITROGEN 15 mg/dL (7-18)
[2017-05-18] MEDS ORDERED: SODIUM CHLORIDE 0.9% 1,000ML IVBOLUS ONE (02:00)
[2017-05-18] MEDS ORDERED: OMNIPAQUE 350 MG/ML, 100ML BOTTLE ONE (02:53)
[2017-05-18] MEDS ORDERED: PANTOPRAZOLE 40 MG IV IVPush ONE (04:00)
[2017-05-18] MEDS ORDERED: PANTOPRAZOLE 40 MG IV ONE (04:16)
[2017-05-18] MEDS ORDERED: MORPHINE SULFATE 4 MG/ML, 1ML ONE (04:22)
[2017-05-18] MEDS ORDERED: MORPHINE SULFATE 4 MG/ML, 1ML IVPush ONE (04:30)
[2017-05-18 05:20] VITALS: BP 143/83
[2017-05-18] MEDS ORDERED: NS + 20MEQ KCL 1,000 ML IV SCH (05:47)
[2017-05-18] MEDS ORDERED: ACETAMINOPHEN 325 MG TABLET PO PRN (06:00)
[2017-05-18] MEDS ORDERED: ONDANSETRON 2MG/ML, 2ML IVPush PRN (06:00)
[2017-05-18] MEDS ORDERED: CEFTRIAXONE PMX 1GM/50ML 50 ML IV SCH (06:00)
[2017-05-18] MEDS ORDERED: POLYETHYLENE GLYCOL 17 GM PACKET PO PRN (06:00)
[2017-05-18] MEDS ORDERED: morphine SULFATE 10 MG/ML, 1ML IVPush PRN (06:00)
[2017-05-18] MEDS ORDERED: DOCUSATE 100 MG CAPSULE PO PRN (06:00)
[2017-05-18] MEDS ORDERED: ONDANSETRON ODT 4 MG PO PRN (06:00)
[2017-05-18] MEDS ORDERED: NITROGLYCERIN 0.4 MG BOTTLE (25 TABS) SL PRN (06:00)
[2017-05-18] MEDS: INSULIN ASPART 100 UNITS/ML, PEN SQ-INSULIN SCH ×4 (07:00→21:00)
[2017-05-18] MEDS: SUCRALFATE 1 GM TABLET PO SCH ×4 (07:27→21:35)
[2017-05-18] MEDS: ALLOPURINOL 300 MG TABLET PO SCH (08:37)
[2017-05-18] MEDS: metFORMIN 500 MG TABLET PO SCH ×2 (08:38→21:35)
[2017-05-18] MEDS: AMLODIPINE 5 MG TABLET PO SCH (08:38)
[2017-05-18] MEDS: LACTOBACILLUS 1GM/ PACKET PO SCH ×2 (08:38→21:35)
[2017-05-18] MEDS: METOPROLOL TARTRATE 50 MG TABLET PO SCH ×2 (08:38→21:35)
[2017-05-18] MEDS: PANTOPROZOLE 40MG TABLET PO SCH ×2 (08:38→21:35)
[2017-05-18] MEDS: GABAPENTIN 100 MG CAPSULE PO SCH (08:38)
[2017-05-18] MEDS: COLCHICINE 0.6 MG TABLET PO SCH (08:38)
[2017-05-18] MEDS: BUPROPION SR 100 MG TABLET PO SCH (08:39)
[2017-05-18 09:11] VITALS: BP 130/63
[2017-05-18 14:10] VITALS: BP 130/61
[2017-05-18] MEDS ORDERED: metroNIDAZOLE 500 MG TABLET PO SCH (16:00)
[2017-05-18 17:56] LABS: OCCBLD OBC PASS
[2017-05-18 19:15] VITALS: BP 128/57
[2017-05-18] MEDS: VANCOMYCIN 50 MG/ML ORAL SUSP PO SCH (19:29)
[2017-05-18] MEDS: METRONIDAZOLE PMX 500MG/100ML 100 ML IV SCH (19:29)
[2017-05-18] MEDS: ZOLPIDEM 5MG TABLET PO SCH (21:36)
[2017-05-18] MEDS: LOVASTATIN 40 MG TABLET PO SCH (21:36)
[2017-05-19] MEDS: VANCOMYCIN 50 MG/ML ORAL SUSP PO SCH ×4 (01:52→19:21)
[2017-05-19 02:58] VITALS: BP 133/56
[2017-05-19] MEDS: METRONIDAZOLE PMX 500MG/100ML 100 ML IV SCH ×3 (04:00→19:21)
[2017-05-19 06:00] LABS: BLOOD UREA NITROGEN 8 mg/dL (7-18)
[2017-05-19 06:10] LABS: ASPARTATE AMINO TRANSFERASE 18 U/L (15-37)
[2017-05-19] MEDS: INSULIN ASPART 100 UNITS/ML, PEN SQ-INSULIN SCH ×3 (07:00→16:00)
[2017-05-19] MEDS: SUCRALFATE 1 GM TABLET PO SCH ×4 (07:00→20:44)
[2017-05-19 08:13] VITALS: BP 129/66
[2017-05-19] MEDS: metFORMIN 500 MG TABLET PO SCH ×2 (08:28→20:46)
[2017-05-19] MEDS: COLCHICINE 0.6 MG TABLET PO SCH (08:29)
[2017-05-19] MEDS: AMLODIPINE 5 MG TABLET PO SCH (08:29)
[2017-05-19] MEDS: METOPROLOL TARTRATE 50 MG TABLET PO SCH ×2 (08:29→20:42)
[2017-05-19] MEDS: PANTOPROZOLE 40MG TABLET PO SCH ×2 (08:29→20:43)
[2017-05-19] MEDS: LACTOBACILLUS 1GM/ PACKET PO SCH ×2 (08:29→20:43)
[2017-05-19] MEDS: GABAPENTIN 100 MG CAPSULE PO SCH (08:30)
[2017-05-19] MEDS: ALLOPURINOL 300 MG TABLET PO SCH (08:30)
[2017-05-19] MEDS: BUPROPION SR 100 MG TABLET PO SCH (08:30)
[2017-05-19 14:00] VITALS: BP 100/70
[2017-05-19] MEDS: HYDROcodone/APAP 5/325 TABLET PO PRN (17:19)
[2017-05-19 18:56] VITALS: BP 118/57
[2017-05-19] MEDS: LOVASTATIN 40 MG TABLET PO SCH (20:43)
[2017-05-19] MEDS: ZOLPIDEM 5MG TABLET PO SCH (21:00)
[2017-05-20 01:38] VITALS: BP 123/48
[2017-05-20] MEDS: VANCOMYCIN 50 MG/ML ORAL SUSP PO SCH ×4 (03:22→19:28)
[2017-05-20] MEDS: METRONIDAZOLE PMX 500MG/100ML 100 ML IV SCH ×3 (03:23→19:28)
[2017-05-20 05:23] LABS: HEMATOCRIT 25.7 % (34.6-47.8); HEMOGLOBIN 8.2 g/dL (11.7-16.4); WHITE BLOOD COUNT 13.7 x10^3/uL (3.4-10)
[2017-05-20 05:38] LABS: ASPARTATE AMINO TRANSFERASE 8 U/L (15-37); BLOOD UREA NITROGEN 7 mg/dL (7-18)
[2017-05-20 06:31] VITALS: BP 144/69
[2017-05-20] MEDS: SUCRALFATE 1 GM TABLET PO SCH ×4 (07:00→20:39)
[2017-05-20] MEDS: metFORMIN 500 MG TABLET PO SCH ×2 (07:38→20:40)
[2017-05-20] MEDS: LACTOBACILLUS 1GM/ PACKET PO SCH ×3 (07:48→20:39)
[2017-05-20] MEDS: ALLOPURINOL 300 MG TABLET PO SCH (07:48)
[2017-05-20] MEDS: GABAPENTIN 100 MG CAPSULE PO SCH (07:48)
[2017-05-20] MEDS: BUPROPION SR 100 MG TABLET PO SCH (07:48)
[2017-05-20] MEDS: PANTOPROZOLE 40MG TABLET PO SCH ×2 (07:48→21:32)
[2017-05-20] MEDS: AMLODIPINE 5 MG TABLET PO SCH (07:48)
[2017-05-20] MEDS: METOPROLOL TARTRATE 50 MG TABLET PO SCH ×2 (07:49→20:39)
[2017-05-20] MEDS: COLCHICINE 0.6 MG TABLET PO SCH (07:49)
[2017-05-20] MEDS ORDERED: MAGNESIUM SULFATE PMX 4GM/100M 100 ML IV ONE (10:00)
[2017-05-20] MEDS: CEFTRIAXONE PMX 1GM/50ML 50 ML IV SCH (10:46)
[2017-05-20] MEDS: POTASSIUM ACID PHOSPHATE 500 MG TABLET.SOL PO SCH ×3 (11:20→22:40)
[2017-05-20] MEDS: POTASSIUM CHLORIDE 20 MEQ TAB.ER.PRT PO SCH ×2 (11:20→17:06)
[2017-05-20] MEDS: HYDROcodone/APAP 5/325 TABLET PO PRN ×2 (12:29→20:40)
[2017-05-20 14:46] VITALS: BP 117/69
[2017-05-20 20:21] VITALS: BP 142/82
[2017-05-20] MEDS: LOVASTATIN 40 MG TABLET PO SCH (20:39)
[2017-05-20] MEDS: ZOLPIDEM 5MG TABLET PO SCH (22:40)
[2017-05-21] MEDS: VANCOMYCIN 50 MG/ML ORAL SUSP PO SCH ×4 (00:39→19:51)
[2017-05-21 02:17] VITALS: BP 122/92
[2017-05-21] MEDS: POTASSIUM ACID PHOSPHATE 500 MG TABLET.SOL PO SCH ×4 (03:24→21:35)
[2017-05-21] MEDS: METRONIDAZOLE PMX 500MG/100ML 100 ML IV SCH ×2 (03:24→12:21)
[2017-05-21 05:36] LABS: HEMATOCRIT 25.2 % (34.6-47.8); HEMOGLOBIN 8.2 g/dL (11.7-16.4); WHITE BLOOD COUNT 11.7 x10^3/uL (3.4-10)
[2017-05-21 05:42] LABS: BLOOD UREA NITROGEN 6 mg/dL (7-18)
[2017-05-21 06:35] VITALS: BP 157/73
[2017-05-21] MEDS: metFORMIN 500 MG TABLET PO SCH ×2 (07:06→19:52)
[2017-05-21] MEDS: SUCRALFATE 1 GM TABLET PO SCH ×4 (08:50→19:51)
[2017-05-21] MEDS: POTASSIUM CHLORIDE 20 MEQ TAB.ER.PRT PO SCH ×2 (08:50→12:21)
[2017-05-21] MEDS: ALLOPURINOL 300 MG TABLET PO SCH (08:50)
[2017-05-21] MEDS: LACTOBACILLUS 1GM/ PACKET PO SCH ×3 (08:50→19:51)
[2017-05-21] MEDS: AMLODIPINE 5 MG TABLET PO SCH (08:50)
[2017-05-21] MEDS: GABAPENTIN 100 MG CAPSULE PO SCH (08:50)
[2017-05-21] MEDS: COLCHICINE 0.6 MG TABLET PO SCH (08:50)
[2017-05-21] MEDS: PANTOPROZOLE 40MG TABLET PO SCH ×2 (08:50→19:51)
[2017-05-21] MEDS: BUPROPION SR 100 MG TABLET PO SCH (08:50)
[2017-05-21] MEDS: CEFTRIAXONE PMX 1GM/50ML 50 ML IV SCH (08:55)
[2017-05-21] MEDS: METOPROLOL TARTRATE 50 MG TABLET PO SCH ×2 (08:55→19:51)
[2017-05-21] MEDS: MAGNESIUM OXIDE 400 MG TABLET PO SCH (12:21)
[2017-05-21 13:28] VITALS: BP 148/50
[2017-05-21] MEDS: HYDROcodone/APAP 5/325 TABLET PO PRN (13:44)
[2017-05-21 19:14] VITALS: BP 146/50
[2017-05-21] MEDS: LOVASTATIN 40 MG TABLET PO SCH (19:51)
[2017-05-21] MEDS: ZOLPIDEM 5MG TABLET PO SCH (20:02)
[2017-05-22] MEDS: VANCOMYCIN 50 MG/ML ORAL SUSP PO SCH ×4 (01:31→20:57)
[2017-05-22 01:33] VITALS: BP 140/58
[2017-05-22] MEDS: POTASSIUM ACID PHOSPHATE 500 MG TABLET.SOL PO SCH ×3 (03:24→21:01)
[2017-05-22 06:12] LABS: HEMATOCRIT 26.6 % (34.6-47.8); HEMOGLOBIN 8.6 g/dL (11.7-16.4); WHITE BLOOD COUNT 12.6 x10^3/uL (3.4-10)
[2017-05-22 06:13] LABS: BLOOD UREA NITROGEN 4 mg/dL (7-18)
[2017-05-22] MEDS: HYDROcodone/APAP 5/325 TABLET PO PRN ×3 (07:00→21:05)
[2017-05-22] MEDS: SUCRALFATE 1 GM TABLET PO SCH ×4 (07:00→21:04)
[2017-05-22] MEDS: GABAPENTIN 100 MG CAPSULE PO SCH (08:34)
[2017-05-22] MEDS: AMLODIPINE 5 MG TABLET PO SCH (08:34)
[2017-05-22] MEDS: COLCHICINE 0.6 MG TABLET PO SCH (08:34)
[2017-05-22] MEDS: MAGNESIUM OXIDE 400 MG TABLET PO SCH (08:34)
[2017-05-22] MEDS: BUPROPION SR 100 MG TABLET PO SCH (08:34)
[2017-05-22] MEDS: METOPROLOL TARTRATE 50 MG TABLET PO SCH ×2 (08:34→20:59)
[2017-05-22] MEDS: LACTOBACILLUS 1GM/ PACKET PO SCH ×3 (08:34→20:58)
[2017-05-22] MEDS: metFORMIN 500 MG TABLET PO SCH ×2 (08:34→21:04)
[2017-05-22] MEDS: ALLOPURINOL 300 MG TABLET PO SCH (08:37)
[2017-05-22] MEDS: PANTOPROZOLE 40MG TABLET PO SCH ×2 (08:37→20:58)
[2017-05-22 09:24] VITALS: BP 122/66
[2017-05-22] MEDS: CEFTRIAXONE PMX 1GM/50ML 50 ML IV SCH ×2 (10:00→11:06)
[2017-05-22] MEDS ORDERED: MAGNESIUM SULFATE PMX 2GM/50ML 50 ML IV ONE (15:30)
[2017-05-22 15:34] VITALS: BP 125/59
[2017-05-22 19:38] VITALS: BP 133/57
[2017-05-22] MEDS: CEFDINIR 300 MG CAPSULE PO SCH (20:58)
[2017-05-22] MEDS: ZOLPIDEM 5MG TABLET PO SCH (20:58)
[2017-05-22] MEDS: LOVASTATIN 40 MG TABLET PO SCH (20:59)
[2017-05-23] MEDS: VANCOMYCIN 50 MG/ML ORAL SUSP PO SCH ×4 (00:24→20:36)
[2017-05-23 01:33] VITALS: BP 130/49
[2017-05-23] MEDS: POTASSIUM ACID PHOSPHATE 500 MG TABLET.SOL PO SCH ×2 (03:26→10:27)
[2017-05-23] MEDS: HYDROcodone/APAP 5/325 TABLET PO PRN ×2 (04:49→15:09)
[2017-05-23 05:18] LABS: HEMATOCRIT 28.9 % (34.6-47.8); HEMOGLOBIN 9.2 g/dL (11.7-16.4); WHITE BLOOD COUNT 11.2 x10^3/uL (3.4-10)
[2017-05-23 05:26] LABS: BLOOD UREA NITROGEN 4 mg/dL (7-18)
[2017-05-23 07:35] VITALS: BP 130/54
[2017-05-23] MEDS: LACTOBACILLUS 1GM/ PACKET PO SCH ×3 (07:37→20:37)
[2017-05-23] MEDS: COLCHICINE 0.6 MG TABLET PO SCH (07:37)
[2017-05-23] MEDS: SUCRALFATE 1 GM TABLET PO SCH ×4 (07:37→20:37)
[2017-05-23] MEDS: GABAPENTIN 100 MG CAPSULE PO SCH (07:38)
[2017-05-23] MEDS: metFORMIN 500 MG TABLET PO SCH ×2 (07:38→20:37)
[2017-05-23] MEDS: MAGNESIUM OXIDE 400 MG TABLET PO SCH (07:38)
[2017-05-23] MEDS: BUPROPION SR 100 MG TABLET PO SCH (07:39)
[2017-05-23] MEDS: PANTOPROZOLE 40MG TABLET PO SCH ×2 (07:39→20:37)
[2017-05-23] MEDS: CEFDINIR 300 MG CAPSULE PO SCH (07:39)
[2017-05-23] MEDS: AMLODIPINE 5 MG TABLET PO SCH (07:39)
[2017-05-23] MEDS: ALLOPURINOL 300 MG TABLET PO SCH (07:40)
[2017-05-23] MEDS: METOPROLOL TARTRATE 50 MG TABLET PO SCH ×2 (07:40→20:37)
[2017-05-23 13:27] VITALS: BP 129/57
[2017-05-23 18:52] VITALS: BP 143/74
[2017-05-23] MEDS: ZOLPIDEM 5MG TABLET PO SCH (20:37)
[2017-05-23] MEDS: LOVASTATIN 40 MG TABLET PO SCH (20:37)
[2017-05-23] MEDS: CLOTRIMAZOLE VAGINAL CRM 1%, 45GM VG SCH (22:16)
[2017-05-24 01:25] VITALS: BP 158/76
[2017-05-24] MEDS: VANCOMYCIN 50 MG/ML ORAL SUSP PO SCH ×4 (02:44→19:48)
[2017-05-24 05:38] LABS: HEMATOCRIT 27.4 % (34.6-47.8); HEMOGLOBIN 8.8 g/dL (11.7-16.4); WHITE BLOOD COUNT 12.2 x10^3/uL (3.4-10)
[2017-05-24 06:04] LABS: BLOOD UREA NITROGEN 4 mg/dL (7-18)
[2017-05-24 07:57] VITALS: BP_SYST 145; BP_SYST 153; BP_DIAS 33; BP_DIAS 66
[2017-05-24] MEDS: COLCHICINE 0.6 MG TABLET PO SCH (08:03)
[2017-05-24] MEDS: SUCRALFATE 1 GM TABLET PO SCH ×4 (08:03→21:42)
[2017-05-24] MEDS: LACTOBACILLUS 1GM/ PACKET PO SCH ×3 (08:03→21:42)
[2017-05-24] MEDS: metFORMIN 500 MG TABLET PO SCH ×2 (08:04→21:43)
[2017-05-24] MEDS: METOPROLOL TARTRATE 50 MG TABLET PO SCH ×2 (08:05→21:43)
[2017-05-24] MEDS: AMLODIPINE 5 MG TABLET PO SCH (08:05)
[2017-05-24] MEDS: MAGNESIUM OXIDE 400 MG TABLET PO SCH (08:05)
[2017-05-24] MEDS: GABAPENTIN 100 MG CAPSULE PO SCH (08:05)
[2017-05-24] MEDS: PANTOPROZOLE 40MG TABLET PO SCH ×2 (08:06→21:43)
[2017-05-24] MEDS: BUPROPION SR 100 MG TABLET PO SCH (08:06)
[2017-05-24] MEDS: ALLOPURINOL 300 MG TABLET PO SCH (08:06)
[2017-05-24] MEDS: HYDROcodone/APAP 5/325 TABLET PO PRN ×2 (12:39→19:47)
[2017-05-24 17:03] VITALS: BP 155/60
[2017-05-24 18:53] VITALS: BP 115/64
[2017-05-24] MEDS: CLOTRIMAZOLE VAGINAL CRM 1%, 45GM VG SCH (21:00)
[2017-05-24] MEDS: LOVASTATIN 40 MG TABLET PO SCH (21:42)
[2017-05-24] MEDS: ZOLPIDEM 5MG TABLET PO SCH (21:42)
[2017-05-24] MEDS: CHOLESTYRAMINE LIGHT 4GM PACKET PO SCH (23:23)
[2017-05-25 01:42] VITALS: BP 154/76
[2017-05-25] MEDS: VANCOMYCIN 50 MG/ML ORAL SUSP PO SCH ×4 (02:46→20:05)
[2017-05-25] MEDS: metFORMIN 500 MG TABLET PO SCH ×2 (08:01→20:04)
[2017-05-25] MEDS: MAGNESIUM OXIDE 400 MG TABLET PO SCH (08:02)
[2017-05-25] MEDS: PANTOPROZOLE 40MG TABLET PO SCH ×2 (08:02→20:04)
[2017-05-25] MEDS: LACTOBACILLUS 1GM/ PACKET PO SCH ×3 (08:02→20:04)
[2017-05-25] MEDS: COLCHICINE 0.6 MG TABLET PO SCH (08:02)
[2017-05-25] MEDS: SUCRALFATE 1 GM TABLET PO SCH ×4 (08:02→20:04)
[2017-05-25] MEDS: AMLODIPINE 5 MG TABLET PO SCH (08:02)
[2017-05-25] MEDS: BUPROPION SR 100 MG TABLET PO SCH (08:03)
[2017-05-25] MEDS: METOPROLOL TARTRATE 50 MG TABLET PO SCH ×2 (08:03→20:04)
[2017-05-25] MEDS: CHOLESTYRAMINE LIGHT 4GM PACKET PO SCH ×2 (08:03→20:05)
[2017-05-25] MEDS: ALLOPURINOL 300 MG TABLET PO SCH (08:03)
[2017-05-25] MEDS: GABAPENTIN 100 MG CAPSULE PO SCH (08:03)
[2017-05-25 08:08] LABS: HEMATOCRIT 29.6 % (34.6-47.8); HEMOGLOBIN 9.3 g/dL (11.7-16.4); WHITE BLOOD COUNT 11.2 x10^3/uL (3.4-10)
[2017-05-25 08:15] LABS: BLOOD UREA NITROGEN 5 mg/dL (7-18)
[2017-05-25 10:36] VITALS: BP 130/42
[2017-05-25] MEDS: HYDROcodone/APAP 5/325 TABLET PO PRN ×2 (13:15→20:05)
[2017-05-25 15:58] VITALS: BP 124/74
[2017-05-25 19:28] VITALS: BP 130/60
[2017-05-25] MEDS: CLOTRIMAZOLE VAGINAL CRM 1%, 45GM VG SCH (20:03)
[2017-05-25] MEDS: LOVASTATIN 40 MG TABLET PO SCH (20:04)
[2017-05-25] MEDS: ZOLPIDEM 5MG TABLET PO SCH (22:21)
[2017-05-26 02:15] VITALS: BP 153/69
[2017-05-26] MEDS: VANCOMYCIN 50 MG/ML ORAL SUSP PO SCH ×3 (04:06→15:26)
[2017-05-26] MEDS: HYDROcodone/APAP 5/325 TABLET PO PRN ×2 (04:06→16:36)
[2017-05-26 06:07] LABS: HEMATOCRIT 27.4 % (34.6-47.8); HEMOGLOBIN 8.9 g/dL (11.7-16.4); WHITE BLOOD COUNT 10.2 x10^3/uL (3.4-10)
[2017-05-26 07:26] VITALS: BP 140/65
[2017-05-26] MEDS: SUCRALFATE 1 GM TABLET PO SCH ×3 (08:34→15:26)
[2017-05-26] MEDS: PANTOPROZOLE 40MG TABLET PO SCH (10:47)
[2017-05-26] MEDS: GABAPENTIN 100 MG CAPSULE PO SCH (10:47)
[2017-05-26] MEDS: LACTOBACILLUS 1GM/ PACKET PO SCH (10:47)
[2017-05-26] MEDS: BUPROPION SR 100 MG TABLET PO SCH (10:47)
[2017-05-26] MEDS: ALLOPURINOL 300 MG TABLET PO SCH (10:47)
[2017-05-26] MEDS: MAGNESIUM OXIDE 400 MG TABLET PO SCH (10:47)
[2017-05-26] MEDS: AMLODIPINE 5 MG TABLET PO SCH (10:47)
[2017-05-26] MEDS: COLCHICINE 0.6 MG TABLET PO SCH (10:47)
[2017-05-26] MEDS: METOPROLOL TARTRATE 50 MG TABLET PO SCH (10:48)
[2017-05-26] MEDS: CHOLESTYRAMINE LIGHT 4GM PACKET PO SCH (10:48)
[2017-05-26] MEDS: metFORMIN 500 MG TABLET PO SCH (10:48)
[2017-05-26] MEDS ORDERED: VANC1VIA3 PO (12:00)
[2017-05-26 12:38] VITALS: BP 152/65
== END 2017-05-26 17:30 | disposition home or self-care (01) | DRG 371 ==
LOC: ED 00:51 → EDIP 04:01 → 3NE 05:18
PROVIDERS: ADMIT Family Medicine; ATTEND Internal Medicine
DX: A04.7 Enterocolitis due to Clostridium difficile (principal); K27.4 Chronic or unspecified peptic ulcer, site unspecified, with hemorrhage; E43 Unspecified severe protein-calorie malnutrition; K31.84 Gastroparesis; I50.9 Heart failure, unspecified; I11.0 Hypertensive heart disease with heart failure; E87.1 Hypo-osmolality and hyponatremia; E11.40 Type 2 diabetes mellitus with diabetic neuropathy, unspecified; N39.0 Urinary tract infection, site not specified; E83.42 Hypomagnesemia; B96.1 Klebsiella pneumoniae [K. pneumoniae] as the cause of diseases classified elsewhere; D63.8 Anemia in other chronic diseases classified elsewhere; E78.00 Pure hypercholesterolemia, unspecified; E78.5 Hyperlipidemia, unspecified; E83.39 Other disorders of phosphorus metabolism; E87.6 Hypokalemia; I25.10 Atherosclerotic heart disease of native coronary artery without angina pectoris; I25.2 Old myocardial infarction; J44.9 Chronic obstructive pulmonary disease, unspecified; K21.9 Gastro-esophageal reflux disease without esophagitis; E11.43 Type 2 diabetes mellitus with diabetic autonomic (poly)neuropathy; K29.70 Gastritis, unspecified, without bleeding; K57.90 Diverticulosis of intestine, part unspecified, without perforation or abscess without bleeding; M10.9 Gout, unspecified; N20.0 Calculus of kidney; Z66 Do not resuscitate; Z86.73 Personal history of transient ischemic attack (TIA), and cerebral infarction without residual deficits; Z87.891 Personal history of nicotine dependence; Z95.5 Presence of coronary angioplasty implant and graft; Z90.49 Acquired absence of other specified parts of digestive tract; Z68.30 Body mass index [BMI] 30.0-30.9, adult
CPT/HCPCS: 36415; 74022; 74177; 80048; 80053; 81001; 82272; 82962; 83690; 83735; 84100; 85025; 86677; 87077; 87086; 87186; 87324; 87493; 96374; 96375; J0696; J1885; J2405; J3370; J3480; Q9967; C9113; J3475; J7030

== ENCOUNTER 2017-06-09 13:41 | Emergency (ER) | payer OTHER ==
[~2017-06-09] VITALS: Ht 154.9 cm; Wt 68.8 kg
[~2017-06-09 13:41] MED LIST changes: +VANC1VIA3 PO
[2017-06-09 14:50] LABS: HEMOGLOBIN 10.1 g/dL (11.7-16.4); WHITE BLOOD COUNT 11.6 x10^3/uL (3.4-10)
[2017-06-09] MEDS ORDERED: HYDROmorphone 1 MG/ML, 1ML ONE ×2 (14:50→16:33)
[2017-06-09] MEDS ORDERED: ONDANSETRON 2MG/ML, 2ML ONE (14:50)
[2017-06-09] MEDS ORDERED: SODIUM CHLORIDE FLUSH 10ML SYR IVF ONE (15:00)
[2017-06-09] MEDS ORDERED: ONDANSETRON 2MG/ML, 2ML IVPush ONE (15:00)
[2017-06-09] MEDS ORDERED: HYDR-3245 PO (15:01)
[2017-06-09 15:02] LABS: ASPARTATE AMINO TRANSFERASE 29 U/L (15-37); BLOOD UREA NITROGEN 11 mg/dL (7-18)
[2017-06-09] MEDS: HYDROmorphone 1 MG/ML, 1ML IVPush PRN ×2 (15:46→16:41)
[2017-06-09 15:47] VITALS: BP 156/81
== END 2017-06-09 16:48 | disposition home or self-care (01) ==
LOC: ED 14:17
DX: R10.84 Generalized abdominal pain (principal); F11.20 Opioid dependence, uncomplicated; J44.9 Chronic obstructive pulmonary disease, unspecified; E78.00 Pure hypercholesterolemia, unspecified; E11.9 Type 2 diabetes mellitus without complications; I11.0 Hypertensive heart disease with heart failure; I50.9 Heart failure, unspecified; E78.5 Hyperlipidemia, unspecified; Z86.73 Personal history of transient ischemic attack (TIA), and cerebral infarction without residual deficits; I25.2 Old myocardial infarction; Z90.49 Acquired absence of other specified parts of digestive tract; Z87.891 Personal history of nicotine dependence
CPT/HCPCS: 36415; 74022; 80053; 83690; 85025; 96374; 96375; 96376; 99285; J1170; J2405

== ENCOUNTER 2017-06-15 07:54 | Emergency (ER) | payer OTHER ==
[~2017-06-15] VITALS: Ht 154.9 cm; Wt 69.1 kg
[~2017-06-15 07:54] MED LIST changes: +HYDR-3245 PO
[2017-06-15] MEDS ORDERED: SODIUM CHLORIDE 0.9% 1,000 ML IV ONE (08:42)
[2017-06-15] MEDS ORDERED: HYDROmorphone 1 MG/ML, 1ML IVPush PRN (09:00)
[2017-06-15] MEDS ORDERED: ONDANSETRON 2MG/ML, 2ML IVPush ONE (09:00)
[2017-06-15] MEDS ORDERED: SODIUM CHLORIDE FLUSH 10ML SYR IVF ONE (09:00)
[2017-06-15 09:08] LABS: HEMATOCRIT 34.8 % (34.6-47.8); WHITE BLOOD COUNT 15.6 x10^3/uL (3.4-10)
[2017-06-15 09:14] LABS: ASPARTATE AMINO TRANSFERASE 24 U/L (15-37); BLOOD UREA NITROGEN 10 mg/dL (7-18)
[2017-06-15] MEDS ORDERED: HYDROmorphone 1 MG/ML, 1ML ONE (09:23)
[2017-06-15] MEDS ORDERED: ONDANSETRON 2MG/ML, 2ML ONE (09:24)
[2017-06-15] MEDS ORDERED: CEFTRIAXONE PMX 1GM/50ML 50 ML IV ONE (11:30)
[2017-06-15 12:06] VITALS: BP 139/59
== END 2017-06-15 12:42 | disposition home or self-care (01) ==
LOC: ED 09:55
DX: N30.00 Acute cystitis without hematuria (principal); J44.9 Chronic obstructive pulmonary disease, unspecified; K21.9 Gastro-esophageal reflux disease without esophagitis; I11.0 Hypertensive heart disease with heart failure; I50.9 Heart failure, unspecified; I25.2 Old myocardial infarction; Z86.73 Personal history of transient ischemic attack (TIA), and cerebral infarction without residual deficits; Z90.49 Acquired absence of other specified parts of digestive tract; Z87.891 Personal history of nicotine dependence
CPT/HCPCS: 36415; 80053; 81001; 83690; 85025; 87077; 87086; 87186; 96361; 96365; 96375; 99285; J0696; J1170; J2405; J7030

== ENCOUNTER → 2017-12-18 | Outpatient (CLI) | payer OTHER ==
[~2017-12-18] MED LIST changes: +NAPR-685 PO; -NAPR500T3 PO
== END | disposition home or self-care (01) ==
LOC: CFH 12:40
PROVIDERS: ATTEND Nurse Practitioner Family
DX: N63.20 Unspecified lump in the left breast, unspecified quadrant (principal)
CPT/HCPCS: 77066

== ENCOUNTER → 2017-12-20 | Outpatient (CLI) | payer OTHER ==
[~2017-12-20] MED LIST changes: +ACET325T14 PO; +LIDOCAINE 1%-EPI 1:100K, 20ML ONE; +SODIUM BICARBONATE 4.2%, 5ML ONE
== END | disposition home or self-care (01) ==
LOC: CFH 12:28
PROVIDERS: ATTEND Nurse Practitioner Family
DX: N63.20 Unspecified lump in the left breast, unspecified quadrant (principal)
CPT/HCPCS: 19083; 77065; 88305; J3490

== ENCOUNTER 2018-01-13 10:31 | Inpatient (IN) | payer OTHER ==
[~2018-01-13] VITALS: Ht 154.9 cm; Wt 70.0 kg
[~2018-01-13 10:31] MED LIST changes: -LIDOCAINE 1%-EPI 1:100K, 20ML ONE; -SODIUM BICARBONATE 4.2%, 5ML ONE
[2018-01-13] MEDS ORDERED: ALBU18HF INH (11:04)
[2018-01-13] MEDS ORDERED: methylPREDNISolone SOD SUCC 125 MG/2 ML IVP ONE (11:30)
[2018-01-13 12:14] LABS: BASOPHILS # (AUTO) 0.03 x10^3/uL (0-0.1); BASOPHILS % (AUTO) 0 % (0-1); EOSINOPHILS # (AUTO) 0.42 x10^3/uL (0-0.4); EOSINOPHILS % (AUTO) 6 % (1-7); LYMPHOCYTES # (AUTO) 1.34 x10^3/uL (1-3.4); LYMPHOCYTES % (AUTO) 19 % (22-44); MD NO; MEAN CORPUSCULAR HGB CONC 31.6 g/dL (32.4-35.8); MEAN CORPUSCULAR VOLUME 88.6 fL (80-100); MEAN PLATELET VOLUME 8.1 fL (7.4-10.4); MONOCYTES # (AUTO) 0.76 x10^3/uL (0.2-0.8); MONOCYTES % (AUTO) 11 % (2-9); NEUTROPHILS # (AUTO) 4.58 x10^3/uL (1.8-6.8); NEUTROPHILS % (AUTO) 64 % (42-75); PLATELET COUNT 271 x10^3/uL (130-400); RED BLOOD COUNT 4.34 x10^6/uL (3.82-5.3); RED CELL DISTRIBUTION WIDTH 15.7 % (9.6-15.2)
[2018-01-13 12:28] LABS: ALANINE AMINOTRANSFERASE 27 U/L (12-78); ALBUMIN 3.1 g/dL (3.4-5.0); CALCIUM 8.7 mg/dL (8.5-10.1); CREATININE 0.72 mg/dL (0.55-1.02)
[2018-01-13 12:32] LABS: ALKALINE PHOSPHATASE 117 U/L (45-117); BILIRUBIN,TOTAL 0.4 mg/dL (0.2-1.0); TOTAL PROTEIN 7.4 g/dL (6.4-8.2); TROPONIN I < 0.015 ng/mL (0.000-0.045)
[2018-01-13 12:38] LABS: ANION GAP 7 mmol/L (5-15); CHLORIDE 107 mmol/L (98-107)
[2018-01-13] MEDS ORDERED: LABETALOL 5MG/ML, 20ML IVPush PRN (14:30)
[2018-01-13] MEDS ORDERED: ACETAMINOPHEN 325 MG TABLET PO PRN (14:30)
[2018-01-13] MEDS ORDERED: hydrALAzine 20 MG/ML, 1ML IVPush PRN (14:30)
[2018-01-13] MEDS ORDERED: GUAIFENESIN/DM 200-20MG, 10ML UDC PO PRN (14:30)
[2018-01-13 15:30] VITALS: BP 167/82
[2018-01-13] MEDS: BENZONATATE 100 MG CAPSULE PO SCH ×2 (16:23→21:39)
[2018-01-13] MEDS: HYDROcodone/APAP 10/325 MG TABLET PO SCH ×2 (16:23→21:39)
[2018-01-13] MEDS: ENOXAPARIN 40 MG/0.4 ML SQ SCH (16:23)
[2018-01-13] MEDS: AZITHROMYCIN 500 MG TABLET PO SCH (16:36)
[2018-01-13] MEDS: LISINOPRIL 20 MG TABLET PO SCH ×2 (16:37→21:39)
[2018-01-13] MEDS ORDERED: ALBUTEROL/IPRATROPIUM 2.5MG/0.5MG, 3 ML ONE (16:39)
[2018-01-13] MEDS: ALBUTEROL/IPRATROPIUM 2.5MG/0.5MG, 3 ML NPPB SCH (16:45)
[2018-01-13] MEDS: FLUTICASONE NASAL SPRAY 16GM NAS SCH (17:04)
[2018-01-13 19:08] VITALS: BP 128/67
[2018-01-13] MEDS: METOPROLOL TARTRATE 50 MG TABLET PO SCH (21:39)
[2018-01-13] MEDS: metFORMIN 500 MG TABLET PO SCH (21:39)
[2018-01-13] MEDS: LOVASTATIN 20 MG TABLET PO SCH (21:39)
[2018-01-14 01:15] VITALS: BP 116/74
[2018-01-14] MEDS: BENZONATATE 100 MG CAPSULE PO SCH ×6 (01:44→21:51)
[2018-01-14 04:41] LABS: ANION GAP 6 mmol/L (5-15); CALCIUM 8.8 mg/dL (8.5-10.1); CHLORIDE 103 mmol/L (98-107)
[2018-01-14 04:43] LABS: CREATININE 1.04 mg/dL (0.55-1.02)
[2018-01-14 05:08] LABS: BASOPHILS # (AUTO) 0.02 x10^3/uL (0-0.1); BASOPHILS % (AUTO) 0 % (0-1); EOSINOPHILS # (AUTO) 0.02 x10^3/uL (0-0.4); EOSINOPHILS % (AUTO) 0 % (1-7); LYMPHOCYTES # (AUTO) 1.45 x10^3/uL (1-3.4); LYMPHOCYTES % (AUTO) 23 % (22-44); MD SCAN; MEAN CORPUSCULAR HEMOGLOBIN 28.5 pg (27.0-34.8); MEAN CORPUSCULAR HGB CONC 31.6 g/dL (32.4-35.8); MEAN CORPUSCULAR VOLUME 90.2 fL (80-100); MEAN PLATELET VOLUME 8.6 fL (7.4-10.4); MONOCYTES # (AUTO) 1.01 x10^3/uL (0.2-0.8); MONOCYTES % (AUTO) 16 % (2-9); NEUTROPHILS # (AUTO) 3.78 x10^3/uL (1.8-6.8); NEUTROPHILS % (AUTO) 60 % (42-75); PLATELET COUNT 211 x10^3/uL (130-400); RED BLOOD COUNT 3.87 x10^6/uL (3.82-5.3)
[2018-01-14] MEDS: HYDROcodone/APAP 10/325 MG TABLET PO SCH ×4 (05:37→21:51)
[2018-01-14 06:42] VITALS: BP 132/64
[2018-01-14] MEDS: ALBUTEROL/IPRATROPIUM 2.5MG/0.5MG, 3 ML NPPB SCH ×4 (06:45→19:10)
[2018-01-14] MEDS: FLUTICASONE NASAL SPRAY 16GM NAS SCH (09:31)
[2018-01-14] MEDS: metFORMIN 500 MG TABLET PO SCH ×2 (09:31→21:51)
[2018-01-14] MEDS: GABAPENTIN 100 MG CAPSULE PO SCH (09:32)
[2018-01-14] MEDS: LISINOPRIL 20 MG TABLET PO SCH ×2 (09:32→21:51)
[2018-01-14] MEDS: AZITHROMYCIN 500 MG TABLET PO SCH (09:33)
[2018-01-14] MEDS: BUPROPION SR 100 MG TABLET PO SCH (09:33)
[2018-01-14] MEDS: ALLOPURINOL 300 MG TABLET PO SCH (09:33)
[2018-01-14] MEDS: METOPROLOL TARTRATE 50 MG TABLET PO SCH ×2 (09:46→21:51)
[2018-01-14] MEDS ORDERED: MAGNESIUM SULFATE PMX 4GM/100M 100 ML IV ONE (11:00)
[2018-01-14 13:05] VITALS: BP 148/76
[2018-01-14] MEDS: ENOXAPARIN 40 MG/0.4 ML SQ SCH (14:57)
[2018-01-14 19:10] VITALS: BP 152/76
[2018-01-14] MEDS: LOVASTATIN 20 MG TABLET PO SCH (21:51)
[2018-01-15] VITALS: BP 181/83
[2018-01-15 00:05] VITALS: BP 136/74
[2018-01-15] MEDS: BENZONATATE 100 MG CAPSULE PO SCH ×4 (01:48→14:59)
[2018-01-15] MEDS: HYDROcodone/APAP 10/325 MG TABLET PO SCH ×3 (05:45→16:38)
[2018-01-15] MEDS: ALBUTEROL/IPRATROPIUM 2.5MG/0.5MG, 3 ML NPPB SCH ×3 (06:35→14:47)
[2018-01-15 08:19] VITALS: BP 164/79
[2018-01-15] MEDS: LISINOPRIL 20 MG TABLET PO SCH (09:19)
[2018-01-15] MEDS: AZITHROMYCIN 500 MG TABLET PO SCH (09:19)
[2018-01-15] MEDS: ALLOPURINOL 300 MG TABLET PO SCH (09:20)
[2018-01-15] MEDS: BUPROPION SR 100 MG TABLET PO SCH (09:20)
[2018-01-15] MEDS: GABAPENTIN 100 MG CAPSULE PO SCH (09:24)
[2018-01-15] MEDS: metFORMIN 500 MG TABLET PO SCH (09:24)
[2018-01-15] MEDS: FLUTICASONE NASAL SPRAY 16GM NAS SCH (09:24)
[2018-01-15] MEDS: METOPROLOL TARTRATE 50 MG TABLET PO SCH (09:30)
[2018-01-15 12:44] VITALS: BP 145/76
[2018-01-15] MEDS ORDERED: LISI-170 PO (13:09)
[2018-01-15] MEDS ORDERED: BENZ-17 PO (13:09)
[2018-01-15] MEDS ORDERED: PRED10TA PO (13:09)
[2018-01-15] MEDS ORDERED: AZIT500T5 PO (13:09)
[2018-01-15] MEDS: ENOXAPARIN 40 MG/0.4 ML SQ SCH (15:00)
== END 2018-01-15 16:48 | disposition home or self-care (01) | DRG 189 ==
LOC: ED 11:43 → EDIP 13:34 → 3NW 14:00
PROVIDERS: ADMIT Hospitalist; ATTEND Hospitalist
DX: J96.21 Acute and chronic respiratory failure with hypoxia (principal); E11.65 Type 2 diabetes mellitus with hyperglycemia; I11.0 Hypertensive heart disease with heart failure; I50.9 Heart failure, unspecified; J44.0 Chronic obstructive pulmonary disease with (acute) lower respiratory infection; J44.1 Chronic obstructive pulmonary disease with (acute) exacerbation; E44.1 Mild protein-calorie malnutrition; I16.0 Hypertensive urgency; J20.9 Acute bronchitis, unspecified; Z68.29 Body mass index [BMI] 29.0-29.9, adult; E78.00 Pure hypercholesterolemia, unspecified; E78.5 Hyperlipidemia, unspecified; E83.42 Hypomagnesemia; F41.1 Generalized anxiety disorder; I34.0 Nonrheumatic mitral (valve) insufficiency; I77.810 Thoracic aortic ectasia; T38.0X5A Adverse effect of glucocorticoids and synthetic analogues, initial encounter; Z66 Do not resuscitate; Z86.73 Personal history of transient ischemic attack (TIA), and cerebral infarction without residual deficits; Z95.5 Presence of coronary angioplasty implant and graft; I25.2 Old myocardial infarction; Z79.899 Other long term (current) drug therapy; Z87.11 Personal history of peptic ulcer disease; Z99.81 Dependence on supplemental oxygen
CPT/HCPCS: 36415; 71045; 80048; 80053; 83735; 83880; 84484; 85025; 93005; 93308; 94640; 99285; J1650; J7620; J3475; J7512

== ENCOUNTER 2018-01-26 11:05 | Emergency (ER) | payer OTHER ==
[~2018-01-26] VITALS: Ht 149.9 cm; Wt 61.4 kg
[~2018-01-26 11:05] MED LIST changes: +ALBU18HF INH; +ASPI-621 PO; +AZIT500T5 PO; +BENZ-17 PO; +HYDR-3307 PO; +LISI-170 PO; +POLY17PO5 PO; +POTA99TA24 PO; +TICA90TA PO; +TRAM50TA2 PO
[2018-01-26 11:57] LABS: INTERNATIONAL NORMALIZED RATIO 1.02 (0.93-1.1); PROTHROMBIN TIME 10.6 Seconds (9.6-11.5)
[2018-01-26 12:01] LABS: MEAN CORPUSCULAR HGB CONC 32.5 g/dL (32.4-35.8); MEAN CORPUSCULAR VOLUME 89.2 fL (80-100); MEAN PLATELET VOLUME 8.3 fL (7.4-10.4); PLATELET COUNT 433 x10^3/uL (130-400); RED BLOOD COUNT 3.98 x10^6/uL (3.82-5.3); RED CELL DISTRIBUTION WIDTH 15.3 % (9.6-15.2)
[2018-01-26 12:03] LABS: ANION GAP 8 mmol/L (5-15); CALCIUM 8.9 mg/dL (8.5-10.1); CHLORIDE 106 mmol/L (98-107)
[2018-01-26 12:07] LABS: CREATININE 1.23 mg/dL (0.55-1.02); TROPONIN I < 0.015 ng/mL (0.000-0.045)
[2018-01-26 12:24] LABS: MD YES
[2018-01-26 12:27] LABS: <PLATELET ESTIMATE> INCREASED; ANISOCYTOSIS 1+; BAND#(MANUAL) 0.15 x10^3/uL; BANDS%(MANUAL) 1 % (0-7); EOS#(MANUAL) 0.15 x10^3/uL (0.0-0.4); EOS% (MANUAL) 1 % (1-7); LARGE PLATELETS 1+; LYMPHS% (MANUAL) 13 % (22-44); MONOS#(MANUAL) 0.73 x10^3/uL (0.3-2.7); MONOS% (MANUAL) 5 % (2-9); SEG#(MANUAL) 11.68 x10^3/uL (1.8-6.8); SEGS% (MANUAL) 80 % (42-75)
[2018-01-26 13:25] VITALS: BP 119/66
== END 2018-01-26 14:16 | disposition home or self-care (01) ==
LOC: ED 11:44
DX: R07.89 Other chest pain (principal); J44.9 Chronic obstructive pulmonary disease, unspecified; E78.00 Pure hypercholesterolemia, unspecified; E78.5 Hyperlipidemia, unspecified; E11.9 Type 2 diabetes mellitus without complications; I25.2 Old myocardial infarction; K21.9 Gastro-esophageal reflux disease without esophagitis; I50.9 Heart failure, unspecified; I11.0 Hypertensive heart disease with heart failure; Z86.73 Personal history of transient ischemic attack (TIA), and cerebral infarction without residual deficits; Z90.49 Acquired absence of other specified parts of digestive tract
CPT/HCPCS: 36415; 71045; 80048; 82040; 84484; 85025; 85610; 93005; 99285

== ENCOUNTER 2018-03-09 10:59 | Emergency (ER) | payer OTHER ==
[~2018-03-09] VITALS: Ht 154.9 cm; Wt 69.8 kg
[~2018-03-09 10:59] MED LIST changes: -METF500T4 PO; +METF500T5 PO
[2018-03-09] MEDS ORDERED: ALBUTEROL/IPRATROPIUM 2.5MG/0.5MG, 3 ML ONE (11:57)
[2018-03-09 11:58] LABS: BASOPHILS # (AUTO) 0.01 x10^3/uL (0-0.1); BASOPHILS % (AUTO) 0 % (0-1); EOSINOPHILS # (AUTO) 0.34 x10^3/uL (0-0.4); EOSINOPHILS % (AUTO) 3 % (1-7); LYMPHOCYTES # (AUTO) 1.27 x10^3/uL (1-3.4); LYMPHOCYTES % (AUTO) 10 % (22-44); MD NO; MEAN CORPUSCULAR HEMOGLOBIN 27.5 pg (27.0-34.8); MEAN CORPUSCULAR HGB CONC 31.7 g/dL (32.4-35.8); MONOCYTES # (AUTO) 0.17 x10^3/uL (0.2-0.8); MONOCYTES % (AUTO) 1 % (2-9); NEUTROPHILS % (AUTO) 86 % (42-75); PLATELET COUNT 481 x10^3/uL (130-400); RED BLOOD COUNT 3.02 x10^6/uL (3.82-5.3); RED CELL DISTRIBUTION WIDTH 16.8 % (9.6-15.2)
[2018-03-09] MEDS ORDERED: SODIUM CHLORIDE FLUSH 10ML SYR IVF ONE (12:00)
[2018-03-09] MEDS ORDERED: ALBUTEROL/IPRATROPIUM 2.5MG/0.5MG, 3 ML NPPB ONE (12:00)
[2018-03-09 12:09] LABS: D-DIMER 1.07 ug/mlFEU (0.00-0.52); INTERNATIONAL NORMALIZED RATIO 1.03 (0.93-1.1); PROTHROMBIN TIME 10.6 Seconds (9.6-11.5)
[2018-03-09 12:10] LABS: ALANINE AMINOTRANSFERASE 12 U/L (12-78); ALBUMIN 2.6 g/dL (3.4-5.0); ANION GAP 9 mmol/L (5-15); CHLORIDE 113 mmol/L (98-107); CREATININE 0.94 mg/dL (0.55-1.02)
[2018-03-09 12:15] LABS: ALKALINE PHOSPHATASE 182 U/L (45-117); BILIRUBIN,TOTAL 0.3 mg/dL (0.2-1.0); TOTAL PROTEIN 6.8 g/dL (6.4-8.2); TROPONIN I < 0.015 ng/mL (0.000-0.045)
[2018-03-09] MEDS ORDERED: MORPHINE SULFATE 4 MG/ML, 1ML IVPush ONE (14:30)
[2018-03-09] MEDS ORDERED: OMNIPAQUE 350 MG/ML, 100ML BOTTLE ONE (14:45)
[2018-03-09] MEDS ORDERED: MORPHINE SULFATE 4 MG/ML, 1ML ONE (15:07)
[2018-03-09 15:09] VITALS: BP 142/70
== END 2018-03-09 17:11 | disposition home or self-care (01) ==
LOC: ED 11:50
DX: J44.1 Chronic obstructive pulmonary disease with (acute) exacerbation (principal); D72.829 Elevated white blood cell count, unspecified; C50.912 Malignant neoplasm of unspecified site of left female breast; I11.0 Hypertensive heart disease with heart failure; I50.9 Heart failure, unspecified; K21.9 Gastro-esophageal reflux disease without esophagitis; E11.9 Type 2 diabetes mellitus without complications; E78.5 Hyperlipidemia, unspecified; I25.2 Old myocardial infarction; G45.9 Transient cerebral ischemic attack, unspecified; Z87.891 Personal history of nicotine dependence; Z95.5 Presence of coronary angioplasty implant and graft
CPT/HCPCS: 36415; 71045; 71275; 80053; 83880; 84484; 85025; 85379; 85610; 85730; 93005; 94640; 96374; 99285; Q9967; J7620

== ENCOUNTER 2018-03-10 10:55 | Emergency (ER) | payer OTHER ==
[~2018-03-10] VITALS: Ht 154.9 cm; Wt 64.0 kg
[2018-03-10] MEDS ORDERED: ALBUTEROL/IPRATROPIUM 2.5MG/0.5MG, 3 ML ONE (11:24)
[2018-03-10] MEDS ORDERED: KETOROLAC 30 MG/1 ML ONE (11:30)
[2018-03-10] MEDS ORDERED: ASPIRIN 81 MG TABLET CHEW PO ONE (11:30)
[2018-03-10] MEDS ORDERED: SODIUM CHLORIDE FLUSH 10ML SYR IVF ONE (11:30)
[2018-03-10] MEDS ORDERED: methylPREDNISolone SOD SUCC 125 MG/2 ML IVPush ONE (11:30)
[2018-03-10] MEDS ORDERED: ALBUTEROL/IPRATROPIUM 2.5MG/0.5MG, 3 ML NPPB ONE (11:30)
[2018-03-10] MEDS ORDERED: KETOROLAC 30 MG/1 ML IVPush ONE ×2 (11:30)
[2018-03-10] MEDS ORDERED: PLEASE ENTER HEIGHT AND WEIGHT MC SCH (11:30)
[2018-03-10] MEDS ORDERED: methylPREDNISolone SOD SUCC 125 MG/2 ML ONE (11:31)
[2018-03-10] MEDS ORDERED: ASPIRIN 81 MG TABLET CHEW ONE (11:31)
[2018-03-10 11:34] LABS: BASOPHILS # (AUTO) 0.04 x10^3/uL (0-0.1); BASOPHILS % (AUTO) 0 % (0-1); EOSINOPHILS # (AUTO) 0.23 x10^3/uL (0-0.4); EOSINOPHILS % (AUTO) 2 % (1-7); LYMPHOCYTES # (AUTO) 1.65 x10^3/uL (1-3.4); LYMPHOCYTES % (AUTO) 11 % (22-44); MD NO; MEAN CORPUSCULAR HEMOGLOBIN 27.3 pg (27.0-34.8); MEAN CORPUSCULAR HGB CONC 31.8 g/dL (32.4-35.8); MEAN CORPUSCULAR VOLUME 85.7 fL (80-100); MEAN PLATELET VOLUME 7.8 fL (7.4-10.4); MONOCYTES # (AUTO) 0.99 x10^3/uL (0.2-0.8); MONOCYTES % (AUTO) 6 % (2-9); NEUTROPHILS # (AUTO) 12.47 x10^3/uL (1.8-6.8); NEUTROPHILS % (AUTO) 81 % (42-75); PLATELET COUNT 484 x10^3/uL (130-400); RED BLOOD COUNT 2.99 x10^6/uL (3.82-5.3); RED CELL DISTRIBUTION WIDTH 17.1 % (9.6-15.2)
[2018-03-10 11:44] LABS: ALBUMIN 2.7 g/dL (3.4-5.0); ANION GAP 11 mmol/L (5-15); CALCIUM 8.1 mg/dL (8.5-10.1); CHLORIDE 110 mmol/L (98-107); CREATININE 0.91 mg/dL (0.55-1.02)
[2018-03-10 11:47] LABS: TROPONIN I < 0.015 ng/mL (0.000-0.045)
[2018-03-10] MEDS ORDERED: POTASSIUM CHLORIDE 20 MEQ TAB.ER.PRT PO ONE (12:30)
[2018-03-10] MEDS ORDERED: FUROSEMIDE 20 MG/2 ML IV ONE (12:30)
[2018-03-10] MEDS ORDERED: POTASSIUM CHLORIDE 20 MEQ TAB.ER.PRT ONE (12:58)
[2018-03-10] MEDS ORDERED: FUROSEMIDE 20 MG/2 ML ONE (12:58)
[2018-03-10 14:24] LABS: MICROSCOPIC INDICATED
[2018-03-10 14:55] LABS: CULTURE INDICATED? YES
[2018-03-10 14:57] VITALS: BP 160/71
== END 2018-03-10 15:52 | disposition home or self-care (01) ==
LOC: ED 11:56
DX: J44.1 Chronic obstructive pulmonary disease with (acute) exacerbation (principal); I50.1 Left ventricular failure, unspecified; L89.321 Pressure ulcer of left buttock, stage 1; N30.90 Cystitis, unspecified without hematuria; I11.0 Hypertensive heart disease with heart failure; E78.00 Pure hypercholesterolemia, unspecified; E11.9 Type 2 diabetes mellitus without complications; I25.2 Old myocardial infarction; I25.10 Atherosclerotic heart disease of native coronary artery without angina pectoris; Z95.1 Presence of aortocoronary bypass graft; Z90.49 Acquired absence of other specified parts of digestive tract; Z87.891 Personal history of nicotine dependence
CPT/HCPCS: 36415; 71045; 80048; 81001; 82040; 83880; 84484; 85025; 87077; 87086; 87186; 93005; 94640; 96374; 96375; 99285; J1885; J1940; J2930; J7620

== ENCOUNTER 2018-03-16 17:33 | Inpatient (IN) | payer OTHER ==
[~2018-03-16] VITALS: Ht 156.2 cm; Wt 74.5 kg
[2018-03-16 18:17] LABS: MEAN CORPUSCULAR HEMOGLOBIN 26.7 pg (27.0-34.8); MEAN CORPUSCULAR HGB CONC 31.6 g/dL (32.4-35.8); MEAN CORPUSCULAR VOLUME 84.6 fL (80-100); MEAN PLATELET VOLUME 7.9 fL (7.4-10.4); PLATELET COUNT 590 x10^3/uL (130-400); RED BLOOD COUNT 3.05 x10^6/uL (3.82-5.3); RED CELL DISTRIBUTION WIDTH 18.3 % (9.6-15.2)
[2018-03-16 18:20] LABS: ALANINE AMINOTRANSFERASE 15 U/L (12-78); ALBUMIN 2.9 g/dL (3.4-5.0); ANION GAP 7 mmol/L (5-15); CALCIUM 8.1 mg/dL (8.5-10.1); CHLORIDE 111 mmol/L (98-107)
[2018-03-16 18:24] LABS: ALKALINE PHOSPHATASE 140 U/L (45-117); BILIRUBIN,TOTAL 0.1 mg/dL (0.2-1.0); TOTAL PROTEIN 6.8 g/dL (6.4-8.2); TROPONIN I < 0.015 ng/mL (0.000-0.045)
[2018-03-16 18:37] LABS: BASOPHILS # (AUTO) 0.03 x10^3/uL (0-0.1); BASOPHILS % (AUTO) 0 % (0-1); EOSINOPHILS # (AUTO) 0.18 x10^3/uL (0-0.4); EOSINOPHILS % (AUTO) 2 % (1-7); LYMPHOCYTES # (AUTO) 1.49 x10^3/uL (1-3.4); LYMPHOCYTES % (AUTO) 12 % (22-44); MD SCAN; MONOCYTES % (AUTO) 7 % (2-9); NEUTROPHILS # (AUTO) 9.69 x10^3/uL (1.8-6.8); NEUTROPHILS % (AUTO) 79 % (42-75)
[2018-03-16] MEDS ORDERED: BENZONATATE 100 MG CAPSULE PO PRN (20:00)
[2018-03-16] MEDS ORDERED: TEMAZEPAM 15 MG CAPSULE PO PRN (20:00)
[2018-03-16] MEDS ORDERED: HYDROcodone/APAP 10/325 MG TABLET PO PRN (20:00)
[2018-03-16] MEDS ORDERED: ONDANSETRON 2MG/ML, 2ML IVPush PRN (20:00)
[2018-03-16] MEDS ORDERED: ACETAMINOPHEN 325 MG TABLET PO PRN (20:00)
[2018-03-16] MEDS ORDERED: ENOXAPARIN 40 MG/0.4 ML SQ SCH (20:00)
[2018-03-16] MEDS ORDERED: ALBUTEROL/IPRATROPIUM 2.5MG/0.5MG, 3 ML IPPB PRN (20:00)
[2018-03-16 20:33] VITALS: BP 151/66
[2018-03-16] MEDS ORDERED: methylPREDNISolone SOD SUCC 40 MG/ML IV SCH (21:00)
[2018-03-16] MEDS ORDERED: METOPROLOL TARTRATE 50 MG TABLET PO SCH (21:00)
[2018-03-16] MEDS ORDERED: ATORVASTATIN 40 MG TABLET PO SCH (21:00)
[2018-03-16] MEDS ORDERED: ALBUTEROL/IPRATROPIUM 2.5MG/0.5MG, 3 ML NPPB PRN (21:00)
[2018-03-16 21:40] VITALS: BP 146/63
[2018-03-16] MEDS: TICAGRELOR 90 MG TABLET PO SCH (21:42)
[2018-03-16] MEDS: PANTOPROZOLE 40MG TABLET PO SCH (21:42)
[2018-03-16] MEDS: INSULIN LISPRO 100 UNITS/ML, PEN SQ-INSULIN SCH (23:06)
[2018-03-17 00:55] VITALS: BP 148/65
[2018-03-17 01:24] LABS: MICROSCOPIC AUTO
[2018-03-17 01:25] LABS: CULTURE INDICATED? YES
[2018-03-17 05:25] LABS: ANION GAP 8 mmol/L (5-15); CALCIUM 8.6 mg/dL (8.5-10.1); CHLORIDE 106 mmol/L (98-107); CREATININE 1.11 mg/dL (0.55-1.02)
[2018-03-17 05:29] LABS: MEAN CORPUSCULAR HEMOGLOBIN 26.7 pg (27.0-34.8); MEAN CORPUSCULAR HGB CONC 31.3 g/dL (32.4-35.8); MEAN CORPUSCULAR VOLUME 85.2 fL (80-100); MEAN PLATELET VOLUME 8.1 fL (7.4-10.4); PLATELET COUNT 568 x10^3/uL (130-400); RED BLOOD COUNT 3.05 x10^6/uL (3.82-5.3)
[2018-03-17] MEDS ORDERED: SODIUM POLYSTYRENE SULFONATE ORAL SUSP PO ONE (06:00)
[2018-03-17] MEDS ORDERED: MAGNESIUM SULFATE PMX 2GM/50ML 50 ML IV ONE (06:00)
[2018-03-17 06:28] LABS: BASOPHILS # (AUTO) 0.01 x10^3/uL (0-0.1); BASOPHILS % (AUTO) 0 % (0-1); EOSINOPHILS % (AUTO) 0 % (1-7); LYMPHOCYTES # (AUTO) 0.99 x10^3/uL (1-3.4); LYMPHOCYTES % (AUTO) 7 % (22-44); MD SCAN; MONOCYTES # (AUTO) 0.12 x10^3/uL (0.2-0.8); MONOCYTES % (AUTO) 1 % (2-9); NEUTROPHILS # (AUTO) 12.53 x10^3/uL (1.8-6.8); NEUTROPHILS % (AUTO) 92 % (42-75)
[2018-03-17 08:02] VITALS: BP 133/67
[2018-03-17] MEDS ORDERED: BUPROPION SR 100 MG TABLET PO SCH (09:00)
[2018-03-17] MEDS ORDERED: GABAPENTIN 100 MG CAPSULE PO SCH (09:00)
[2018-03-17] MEDS ORDERED: ALLOPURINOL 300 MG TABLET PO SCH (09:00)
[2018-03-17] MEDS ORDERED: COLCHICINE 0.6 MG TABLET PO SCH (09:00)
[2018-03-17] MEDS ORDERED: ASPIRIN 81 MG TABLET EC PO SCH (09:00)
[2018-03-17] MEDS ORDERED: LACTOBACILLUS CHEW TABLET PO SCH (09:00)
[2018-03-17] MEDS: INSULIN LISPRO 100 UNITS/ML, PEN SQ-INSULIN SCH ×2 (09:42→12:22)
[2018-03-17] MEDS: TICAGRELOR 90 MG TABLET PO SCH (09:42)
[2018-03-17] MEDS: PANTOPROZOLE 40MG TABLET PO SCH (09:44)
[2018-03-17] MEDS ORDERED: GADOBUTROL 7.5 MMOL/7.5 ML VIAL ONE (09:46)
[2018-03-17] MEDS ORDERED: CARV6.2512 PO (09:51)
[2018-03-17] MEDS ORDERED: ACID1TAB7 PO (09:51)
[2018-03-17 13:33] VITALS: BP 132/65
[2018-03-17] MEDS ORDERED: CARVEDILOL 6.25 MG TABLET PO SCH (18:00)
[2018-03-26] MEDS ORDERED: NITR100C PO (20:48)
[2018-03-26] MEDS ORDERED: IRON TAB (20:48)
[2018-03-26] MEDS ORDERED: LISI-170 PO (20:48)
[2018-03-26] MEDS ORDERED: LOVA20TA2 PO (20:48)
[2018-03-26] MEDS ORDERED: SULF-169 PO (20:48)
[2018-03-26] MEDS ORDERED: CLOP75TA PO (20:48)
[2018-03-26] MEDS ORDERED: AMLO5TAB2 PO (20:48)
[2018-03-26] MEDS ORDERED: METH500T7 PO (20:48)
[2018-03-29] MEDS ORDERED: AMOX1TAB64 PO (11:41)
[2018-03-29] MEDS ORDERED: FERR325T18 PO (11:41)
[2018-03-29] MEDS ORDERED: LISI-170 PO (13:35)
== END 2018-03-17 17:55 | disposition home or self-care (01) | DRG 189 ==
LOC: ED 18:04 → EDIP 19:26 → 4WST 20:37
PROVIDERS: ADMIT Internal Medicine; ATTEND Internal Medicine
DX: J96.21 Acute and chronic respiratory failure with hypoxia (principal); D62 Acute posthemorrhagic anemia; J44.1 Chronic obstructive pulmonary disease with (acute) exacerbation; E44.0 Moderate protein-calorie malnutrition; J96.11 Chronic respiratory failure with hypoxia; E87.5 Hyperkalemia; I25.2 Old myocardial infarction; I34.0 Nonrheumatic mitral (valve) insufficiency; D72.829 Elevated white blood cell count, unspecified; E11.65 Type 2 diabetes mellitus with hyperglycemia; E78.00 Pure hypercholesterolemia, unspecified; E78.5 Hyperlipidemia, unspecified; I11.0 Hypertensive heart disease with heart failure; I25.10 Atherosclerotic heart disease of native coronary artery without angina pectoris; I50.9 Heart failure, unspecified; K21.9 Gastro-esophageal reflux disease without esophagitis; Z86.73 Personal history of transient ischemic attack (TIA), and cerebral infarction without residual deficits; Z87.11 Personal history of peptic ulcer disease; Z95.1 Presence of aortocoronary bypass graft; Z95.5 Presence of coronary angioplasty implant and graft; Z99.81 Dependence on supplemental oxygen; Z68.30 Body mass index [BMI] 30.0-30.9, adult
CPT/HCPCS: 0399T; 36415; 70450; 70553; 71045; 80048; 80053; 81001; 82962; 83735; 83880; 84484; 85025; 87086; 93005; 93306; 93880; 99285; A9585; J1650; J1815; J2920; J3475

== ENCOUNTER → 2018-03-22 | Outpatient (CLI) | payer OTHER ==
[~2018-03-22] MED LIST changes: +ACID1TAB7 PO; +CARV6.2512 PO; +IRON TAB; +METH500T7 PO; +NITR100C PO
== END | disposition home or self-care (01) ==
LOC: CFH 13:38
PROVIDERS: ATTEND Surgery
DX: C50.419 Malignant neoplasm of upper-outer quadrant of unspecified female breast (principal); N63.12 Unspecified lump in the right breast, upper inner quadrant

== ENCOUNTER 2018-04-02 08:14 | Day surgery (SDC) | payer OTHER ==
[~2018-04-02] VITALS: Ht 156.2 cm; Wt 68.0 kg
[~2018-04-02 08:14] MED LIST changes: +AMOX1TAB64 PO; +BUPIVACAINE/PF-EPI 0.5% 1:200K ONE; +ISOSULFAN BLUE 10 MG/ML, 5ML IV ONE
[2018-04-02 10:06] VITALS: BP 153/75
[2018-04-02] MEDS ORDERED: LIDOCAINE 1%, 20ML ONE (10:27)
[2018-04-02] MEDS ORDERED: SODIUM BICARBONATE 4.0%, 5ML ONE (10:27)
[2018-04-02] MEDS ORDERED: LIDOCAINE-MPF 1%, 2ML INFIL ONE (10:30)
[2018-04-02] MEDS ORDERED: PLEASE ENTER HEIGHT AND WEIGHT MC SCH (10:30)
[2018-04-02] MEDS ORDERED: CARV6.252 PO (10:45)
[2018-04-02] MEDS ORDERED: ASPI-496 PO (10:45)
[2018-04-02] MEDS ORDERED: HYDR-3307 PO (10:45)
[2018-04-02] MEDS ORDERED: TICA90TA PO (10:45)
[2018-04-02] MEDS ORDERED: TRAM50TA2 PO (10:45)
[2018-04-02] MEDS ORDERED: ACET325T14 PO (10:45)
[2018-04-02] MEDS ORDERED: FERR325T18 PO (10:45)
[2018-04-02] MEDS ORDERED: BENZ-17 PO (10:45)
[2018-04-02] MEDS ORDERED: LISI-170 PO (10:45)
[2018-04-02] MEDS ORDERED: ATOR40TA PO (10:45)
[2018-04-02] MEDS ORDERED: PANT40TA5 PO (10:45)
[2018-04-02] MEDS ORDERED: AMOX1TAB64 PO (10:45)
[2018-04-02] MEDS: LACTATED RINGERS 1,000 ML IV SCH ×2 (10:52→10:59)
[2018-04-02] MEDS ORDERED: FENTANYL PF 250 MCG/5ML ONE (10:56)
[2018-04-02 11:26] VITALS: BP 150/71
[2018-04-02 11:46] VITALS: BP 154/69
[2018-04-02 11:58] VITALS: BP 172/78
[2018-04-02] MEDS ORDERED: ACETAMINOPHEN 500 MG TABLET ONE (12:32)
[2018-04-02] MEDS ORDERED: GABAPENTIN 300 MG CAPSULE ONE (12:32)
[2018-04-02] MEDS ORDERED: CEFAZOLIN 1,000 MG ONE (12:59)
[2018-04-02] MEDS ORDERED: METOPROLOL 1 MG/ML, 5ML ONE (12:59)
[2018-04-02] MEDS ORDERED: DEXAMETHASONE 4 MG/ML, 1ML ONE (12:59)
[2018-04-02] MEDS ORDERED: PROPOFOL 10 MG/ML, 20ML ONE (12:59)
[2018-04-02] MEDS ORDERED: ONDANSETRON 2MG/ML, 2ML ONE (12:59)
[2018-04-02] MEDS ORDERED: BUPIVACAINE/PF-EPI 0.5% 1:200K INFIL ONE (13:00)
[2018-04-02] MEDS ORDERED: ISOSULFAN BLUE 10 MG/ML, 5ML IV ONE (13:00)
[2018-04-02] MEDS ORDERED: HYDROmorphone 1 MG/ML, 1ML IV PRN (13:30)
[2018-04-02] MEDS ORDERED: PROMETHAZINE 25 MG/ML, 1ML IV PRN (13:30)
[2018-04-02] MEDS ORDERED: LABETALOL 5MG/ML, 20ML IV PRN (13:30)
[2018-04-02] MEDS ORDERED: HALOPERIDOL 5 MG/ML IV PRN (13:30)
[2018-04-02] MEDS ORDERED: LORazepam 2 MG/ML, 1ML IVPush PRN (13:30)
[2018-04-02] MEDS ORDERED: METOPROLOL 1 MG/ML, 5ML IV PRN (13:30)
[2018-04-02] MEDS ORDERED: OXYcodone 5 MG/5 ML ORAL.SOL UDC ONE ×2 (13:43→13:59)
[2018-04-02] MEDS ORDERED: FENTANYL PF 100 MCG/2ML ONE (13:43)
[2018-04-02] MEDS: FENTANYL PF 100 MCG/2ML IV PRN ×5 (13:47→14:23)
[2018-04-02] MEDS: OXYcodone 5 MG/5 ML ORAL.SOL UDC PO PRN ×2 (13:47→14:03)
[2018-04-02] MEDS ORDERED: ALBUTEROL SULFATE 2.5 MG/3 ML ONE ×2 (13:47→15:41)
[2018-04-02] MEDS: ALBUTEROL SULFATE 2.5 MG/3 ML NPPB PRN ×2 (13:50→15:50)
[2018-04-02] MEDS ORDERED: MORPHINE SULFATE 4 MG/ML, 1ML IVPush PRN (18:30)
[2018-04-02] MEDS ORDERED: HYDROcodone/APAP 5/325 TABLET PO PRN (18:30)
== END 2018-04-02 21:30 ==
LOC: OUT 08:14 → 4NOR 17:31 → OUT 17:54 → 4NOR 17:55 → UNDOADMOB 17:55 → UNDODISOB 18:28 → 4NOR 21:30
PROVIDERS: ATTEND Surgery
DX: C50.912 Malignant neoplasm of unspecified site of left female breast (principal); R59.1 Generalized enlarged lymph nodes; E11.9 Type 2 diabetes mellitus without complications; E78.00 Pure hypercholesterolemia, unspecified; Z87.39 Personal history of other diseases of the musculoskeletal system and connective tissue; Z86.73 Personal history of transient ischemic attack (TIA), and cerebral infarction without residual deficits; Z98.890 Other specified postprocedural states; Z72.89 Other problems related to lifestyle; Z87.891 Personal history of nicotine dependence
CPT/HCPCS: 19285; 19301; 36415; 38525; 38792; 76098; 77065; 82962; 88307; 94640; A9541; C9898; J0690; J1100; J2405; J2704; J3010; J3490; J7120; J7613; P9035

== ENCOUNTER → 2018-05-02 | Outpatient (CLI) | payer OTHER ==
[~2018-05-02] MED LIST changes: +ASPI-496 PO; +ATOR40TA PO; -BUPIVACAINE/PF-EPI 0.5% 1:200K ONE; +CARV6.252 PO; -ISOSULFAN BLUE 10 MG/ML, 5ML IV ONE
== END | disposition home or self-care (01) ==
LOC: ROC 08:10
PROVIDERS: ATTEND Radiology Radiation Oncology
DX: C50.412 Malignant neoplasm of upper-outer quadrant of left female breast (principal)
CPT/HCPCS: 99214; G0463

== ENCOUNTER 2018-06-01 10:01 | Emergency (ER) | payer OTHER ==
[~2018-06-01] VITALS: Ht 157.5 cm; Wt 68.0 kg
[~2018-06-01 10:01] MED LIST changes: -AMLO5TAB2 PO; +AMLO5TAB7 PO; +METF500T17 PO; -METF500T5 PO; -SENN1TAB7 PO; +SENN1TAB8 PO
[2018-06-01] MEDS ORDERED: KETOROLAC 30 MG/1 ML ONE (10:43)
[2018-06-01] MEDS ORDERED: ONDANSETRON ODT 4 MG ONE (10:47)
[2018-06-01] MEDS ORDERED: KETOROLAC 30 MG/1 ML IM ONE (11:00)
[2018-06-01] MEDS ORDERED: ONDANSETRON ODT 4 MG PO ONE (11:00)
[2018-06-01 11:07] LABS: ALANINE AMINOTRANSFERASE 15 U/L (12-78); ALBUMIN 3.2 g/dL (3.4-5.0); ANION GAP 8 mmol/L (5-15); BASOPHILS # (AUTO) 0.07 x10^3/uL (0-0.1); BASOPHILS % (AUTO) 1 % (0-1); CALCIUM 8.3 mg/dL (8.5-10.1); CHLORIDE 113 mmol/L (98-107); CREATININE 0.94 mg/dL (0.55-1.02); EOSINOPHILS # (AUTO) 0.27 x10^3/uL (0-0.4); EOSINOPHILS % (AUTO) 3 % (1-7); LYMPHOCYTES # (AUTO) 2.06 x10^3/uL (1-3.4); LYMPHOCYTES % (AUTO) 23 % (22-44); MD NO; MEAN CORPUSCULAR HEMOGLOBIN 27.6 pg (27.0-34.8); MEAN CORPUSCULAR HGB CONC 31.5 g/dL (32.4-35.8); MEAN CORPUSCULAR VOLUME 87.7 fL (80-100); MONOCYTES # (AUTO) 0.82 x10^3/uL (0.2-0.8); MONOCYTES % (AUTO) 9 % (2-9); NEUTROPHILS # (AUTO) 5.71 x10^3/uL (1.8-6.8); NEUTROPHILS % (AUTO) 64 % (42-75); PLATELET COUNT 349 x10^3/uL (130-400); RED BLOOD COUNT 4.09 x10^6/uL (3.82-5.3); RED CELL DISTRIBUTION WIDTH 19.4 % (9.6-15.2)
[2018-06-01 11:08] LABS: ALKALINE PHOSPHATASE 120 U/L (45-117); BILIRUBIN,TOTAL 0.4 mg/dL (0.2-1.0); TOTAL PROTEIN 7.5 g/dL (6.4-8.2)
[2018-06-01 12:41] LABS: MICROSCOPIC INDICATED
[2018-06-01 12:42] LABS: CULTURE INDICATED? YES
[2018-06-01] MEDS ORDERED: HYDROcodone/APAP 10/325 MG TABLET ONE (12:44)
[2018-06-01] MEDS ORDERED: OXYcodone/APAP 10/325MG TABLET ONE (12:48)
[2018-06-01] MEDS ORDERED: OXYcodone/APAP 10/325MG TABLET PO ONE (13:00)
[2018-06-01 14:11] VITALS: BP 151/80
== END 2018-06-01 14:16 | disposition home or self-care (01) ==
LOC: ED 11:10
DX: N30.00 Acute cystitis without hematuria (principal); M77.51 Other enthesopathy of right foot and ankle; I10 Essential (primary) hypertension; E78.5 Hyperlipidemia, unspecified; I25.10 Atherosclerotic heart disease of native coronary artery without angina pectoris; E11.65 Type 2 diabetes mellitus with hyperglycemia; F41.1 Generalized anxiety disorder; I25.2 Old myocardial infarction; E78.00 Pure hypercholesterolemia, unspecified; J44.9 Chronic obstructive pulmonary disease, unspecified; M10.9 Gout, unspecified; Z90.49 Acquired absence of other specified parts of digestive tract; Z86.73 Personal history of transient ischemic attack (TIA), and cerebral infarction without residual deficits; Z90.89 Acquired absence of other organs; Z86.39 Personal history of other endocrine, nutritional and metabolic disease
CPT/HCPCS: 36415; 73610; 80053; 81001; 83605; 83690; 85025; 87086; 93005; 96372; 99285; J1885; Q0162

== ENCOUNTER 2018-06-05 09:52 | Emergency (ER) | payer OTHER ==
[~2018-06-05] VITALS: Ht 154.9 cm; Wt 68.0 kg
[2018-06-05] MEDS ORDERED: MAALOX/HYOSCYAMINE/LIDOCAINE 45 ML BTL ONE (10:24)
[2018-06-05] MEDS ORDERED: MAALOX/HYOSCYAMINE/LIDOCAINE 45 ML BTL PO ONE (10:30)
[2018-06-05 10:47] LABS: BASOPHILS # (AUTO) 0.01 x10^3/uL (0-0.1); BASOPHILS % (AUTO) 0 % (0-1); EOSINOPHILS # (AUTO) 0.17 x10^3/uL (0-0.4); EOSINOPHILS % (AUTO) 2 % (1-7); LYMPHOCYTES # (AUTO) 1.81 x10^3/uL (1-3.4); LYMPHOCYTES % (AUTO) 17 % (22-44); MD NO; MEAN CORPUSCULAR HEMOGLOBIN 27.8 pg (27.0-34.8); MEAN CORPUSCULAR HGB CONC 31.3 g/dL (32.4-35.8); MEAN CORPUSCULAR VOLUME 88.8 fL (80-100); MEAN PLATELET VOLUME 8.1 fL (7.4-10.4); MONOCYTES # (AUTO) 1.08 x10^3/uL (0.2-0.8); MONOCYTES % (AUTO) 10 % (2-9); NEUTROPHILS # (AUTO) 7.69 x10^3/uL (1.8-6.8); NEUTROPHILS % (AUTO) 72 % (42-75); PLATELET COUNT 314 x10^3/uL (130-400); RED BLOOD COUNT 4.03 x10^6/uL (3.82-5.3); RED CELL DISTRIBUTION WIDTH 19.9 % (9.6-15.2)
[2018-06-05 10:50] LABS: INTERNATIONAL NORMALIZED RATIO 0.98 (0.93-1.1); PROTHROMBIN TIME 10.2 Seconds (9.6-11.5)
[2018-06-05 10:54] LABS: TROPONIN I < 0.015 ng/mL (0.000-0.045)
[2018-06-05 12:44] LABS: ALANINE AMINOTRANSFERASE 16 U/L (12-78); ALBUMIN 2.9 g/dL (3.4-5.0); ANION GAP 8 mmol/L (5-15); CALCIUM 8.7 mg/dL (8.5-10.1); CHLORIDE 111 mmol/L (98-107); CREATININE 0.82 mg/dL (0.55-1.02)
[2018-06-05 12:48] LABS: ALKALINE PHOSPHATASE 103 U/L (45-117); BILIRUBIN,TOTAL 0.2 mg/dL (0.2-1.0)
[2018-06-05 13:34] LABS: CLOSTRIDIUM DIFFICILE ANTIGEN POSITIVE; CLOSTRIDIUM DIFFICILE TOXIN NEGATIVE (Negative)
[2018-06-05 14:06] LABS: CULTURE INDICATED? YES; MICROSCOPIC INDICATED
[2018-06-05 16:35] VITALS: BP 145/74
[2018-06-06] MEDS ORDERED: ONDA4TAB13 SL (17:18)
[2018-06-06] MEDS ORDERED: CLOP75TA PO (17:18)
[2018-06-06] MEDS ORDERED: PANT40TA5 PO (17:18)
[2018-06-06] MEDS ORDERED: METF1000 PO (17:18)
[2018-06-06] MEDS ORDERED: METO50TA82 PO (17:18)
[2018-06-06] MEDS ORDERED: RANI150T4 PO (17:18)
[2018-06-06] MEDS ORDERED: LISI-170 PO (17:18)
[2018-06-06] MEDS ORDERED: BUPR100T11 PO (17:18)
[2018-06-06] MEDS ORDERED: ACID1TAB7 PO (17:18)
[2018-06-06] MEDS ORDERED: GABA100C PO (17:18)
[2018-06-06] MEDS ORDERED: ALLO100T64 PO (17:18)
[2018-06-06] MEDS ORDERED: ANAS1TAB PO (17:18)
[2018-06-06] MEDS ORDERED: PHEN-583 PO (17:18)
[2018-06-06] MEDS ORDERED: COLC0.6T37 PO (17:18)
[2018-06-06] MEDS ORDERED: CEFD300C37 PO (17:18)
[2018-06-06] MEDS ORDERED: HYDR-3307 PO (17:18)
[2018-06-06] MEDS ORDERED: METH500T7 PO (17:18)
[2018-06-06] MEDS ORDERED: CARV6.252 PO (17:18)
[2018-06-06] MEDS ORDERED: FERR324T5 PO (17:18)
[2018-06-06] MEDS ORDERED: ATOR40TA PO (17:18)
[2018-06-06] MEDS ORDERED: AMLO5TAB7 PO (17:18)
[2018-06-06] MEDS ORDERED: MUSCLE RELAXER (17:18)
[2018-06-06] MEDS ORDERED: LOVA20TA2 PO (17:18)
[2018-06-06] MEDS ORDERED: ASCO500T8 PO (17:18)
[2018-06-06] MEDS ORDERED: METR250T12 PO (17:18)
[2018-06-06] MEDS ORDERED: BENZ-17 PO (17:18)
[2018-06-06] MEDS ORDERED: VITA100C8 PO (17:18)
[2018-06-06] MEDS ORDERED: TICA90TA PO (17:18)
== END 2018-06-05 17:27 | disposition home or self-care (01) ==
LOC: ED 13:31
DX: R19.7 Diarrhea, unspecified (principal); E11.9 Type 2 diabetes mellitus without complications; E78.5 Hyperlipidemia, unspecified; I25.10 Atherosclerotic heart disease of native coronary artery without angina pectoris; I25.2 Old myocardial infarction; K21.9 Gastro-esophageal reflux disease without esophagitis; I11.9 Hypertensive heart disease without heart failure; I50.9 Heart failure, unspecified; J44.9 Chronic obstructive pulmonary disease, unspecified; Z86.73 Personal history of transient ischemic attack (TIA), and cerebral infarction without residual deficits; Z87.891 Personal history of nicotine dependence; Z90.49 Acquired absence of other specified parts of digestive tract; Z90.89 Acquired absence of other organs
CPT/HCPCS: 36415; 74022; 80053; 81001; 83690; 83880; 84484; 85025; 85610; 85730; 87086; 87324; 87493; 99285

== ENCOUNTER 2018-06-06 15:04 | Emergency (ER) | payer OTHER ==
[~2018-06-06] VITALS: Ht 154.9 cm; Wt 67.0 kg
[2018-06-06 15:39] LABS: BASOPHILS # (AUTO) 0.04 x10^3/uL (0-0.1); BASOPHILS % (AUTO) 0 % (0-1); EOSINOPHILS # (AUTO) 0.06 x10^3/uL (0-0.4); EOSINOPHILS % (AUTO) 1 % (1-7); LYMPHOCYTES # (AUTO) 1.66 x10^3/uL (1-3.4); LYMPHOCYTES % (AUTO) 13 % (22-44); MD NO; MEAN CORPUSCULAR HEMOGLOBIN 27.6 pg (27.0-34.8); MEAN CORPUSCULAR HGB CONC 31.3 g/dL (32.4-35.8); MEAN CORPUSCULAR VOLUME 88.2 fL (80-100); MEAN PLATELET VOLUME 8.1 fL (7.4-10.4); MONOCYTES # (AUTO) 1.07 x10^3/uL (0.2-0.8); MONOCYTES % (AUTO) 8 % (2-9); NEUTROPHILS # (AUTO) 10.12 x10^3/uL (1.8-6.8); NEUTROPHILS % (AUTO) 78 % (42-75); PLATELET COUNT 370 x10^3/uL (130-400); RED BLOOD COUNT 4.07 x10^6/uL (3.82-5.3); RED CELL DISTRIBUTION WIDTH 19.8 % (9.6-15.2)
[2018-06-06 15:49] LABS: ALANINE AMINOTRANSFERASE 12 U/L (12-78); ANION GAP 10 mmol/L (5-15); CALCIUM 8.9 mg/dL (8.5-10.1); CHLORIDE 107 mmol/L (98-107); CREATININE 0.85 mg/dL (0.55-1.02)
[2018-06-06 15:51] LABS: ALKALINE PHOSPHATASE 105 U/L (45-117); BILIRUBIN,TOTAL 0.3 mg/dL (0.2-1.0); TOTAL PROTEIN 7.4 g/dL (6.4-8.2)
[2018-06-06] MEDS ORDERED: metroNIDAZOLE 500 MG TABLET PO ONE (16:30)
[2018-06-06] MEDS ORDERED: metroNIDAZOLE 500 MG TABLET ONE (16:43)
[2018-06-06] MEDS ORDERED: HYDROcodone/APAP 5/325 TABLET ONE (16:43)
[2018-06-06] MEDS ORDERED: HYDROcodone/APAP 5/325 TABLET PO ONE (17:00)
[2018-06-06] MEDS ORDERED: LOVA20TA2 PO (17:18)
[2018-06-06] MEDS ORDERED: FERR324T5 PO (17:18)
[2018-06-06] MEDS ORDERED: CLOP75TA PO (17:18)
[2018-06-06] MEDS ORDERED: RANI150T4 PO (17:18)
[2018-06-06] MEDS ORDERED: BENZ-17 PO (17:18)
[2018-06-06] MEDS ORDERED: ACID1TAB7 PO (17:18)
[2018-06-06] MEDS ORDERED: PHEN-583 PO (17:18)
[2018-06-06] MEDS ORDERED: COLC0.6T37 PO (17:18)
[2018-06-06] MEDS ORDERED: METF1000 PO (17:18)
[2018-06-06] MEDS ORDERED: METO50TA82 PO (17:18)
[2018-06-06] MEDS ORDERED: VITA100C8 PO (17:18)
[2018-06-06] MEDS ORDERED: HYDR-3307 PO (17:18)
[2018-06-06] MEDS ORDERED: GABA100C PO (17:18)
[2018-06-06] MEDS ORDERED: BUPR100T11 PO (17:18)
[2018-06-06] MEDS ORDERED: TICA90TA PO (17:18)
[2018-06-06] MEDS ORDERED: MUSCLE RELAXER (17:18)
[2018-06-06] MEDS ORDERED: ANAS1TAB PO (17:18)
[2018-06-06] MEDS ORDERED: METH500T7 PO (17:18)
[2018-06-06] MEDS ORDERED: ASCO500T8 PO (17:18)
[2018-06-06] MEDS ORDERED: ATOR40TA PO (17:18)
[2018-06-06] MEDS ORDERED: AMLO5TAB7 PO (17:18)
[2018-06-06] MEDS ORDERED: ONDA4TAB13 SL (17:18)
[2018-06-06] MEDS ORDERED: ALLO100T64 PO (17:18)
[2018-06-06] MEDS ORDERED: METR250T12 PO (17:18)
[2018-06-06] MEDS ORDERED: CARV6.252 PO (17:18)
[2018-06-06] MEDS ORDERED: CEFD300C37 PO (17:18)
[2018-06-06] MEDS ORDERED: LISI-170 PO (17:18)
[2018-06-06] MEDS ORDERED: PANT40TA5 PO (17:18)
[2018-06-06 17:20] VITALS: BP 153/72
[2018-06-06] MEDS ORDERED: MORPHINE SULFATE 4 MG/ML, 1ML IVPush PRN (18:00)
[2018-06-06] MEDS ORDERED: MORPHINE SULFATE 4 MG/ML, 1ML ONE (18:18)
== END 2018-06-06 19:17 | disposition home or self-care (01) ==
LOC: ED 16:53 → UNDOADMIN 17:03 → EDIP 17:03 → ED 19:17
DX: R53.1 Weakness (principal); R10.84 Generalized abdominal pain; I11.0 Hypertensive heart disease with heart failure; I50.9 Heart failure, unspecified; I25.10 Atherosclerotic heart disease of native coronary artery without angina pectoris; K21.9 Gastro-esophageal reflux disease without esophagitis; J44.9 Chronic obstructive pulmonary disease, unspecified; M10.9 Gout, unspecified; I25.2 Old myocardial infarction; E78.5 Hyperlipidemia, unspecified; E11.43 Type 2 diabetes mellitus with diabetic autonomic (poly)neuropathy; K31.84 Gastroparesis; Z90.89 Acquired absence of other organs; Z90.49 Acquired absence of other specified parts of digestive tract; Z86.711 Personal history of pulmonary embolism; Z86.73 Personal history of transient ischemic attack (TIA), and cerebral infarction without residual deficits
CPT/HCPCS: 36415; 80053; 85025; 93005; 96374; 99285

== ENCOUNTER 2018-06-26 09:46 | Emergency (ER) | payer OTHER ==
[~2018-06-26] VITALS: Ht 157.5 cm; Wt 67.0 kg
[~2018-06-26 09:46] MED LIST changes: +ALLO100T64 PO; +ANAS1TAB PO; +BUPR100T11 PO; +FERR324T5 PO; +GABA100C PO; +HYDR-3652 PO; -HYDR-883 PO; +METF1000 PO; +METR250T12 PO; +MUSCLE RELAXER; +ONDA4TAB13 SL; +PHEN-583 PO; +RANI150T4 PO; +VITA100C8 PO
[2018-06-26 11:36] LABS: MICROSCOPIC INDICATED
[2018-06-26 11:37] LABS: CULTURE INDICATED? YES
[2018-06-26] MEDS ORDERED: FLUCONAZOLE 100 MG TABLET ONE (12:29)
[2018-06-26] MEDS ORDERED: FLUCONAZOLE 100 MG TABLET PO ONE (12:30)
[2018-06-26 12:41] VITALS: BP 143/59
== END 2018-06-26 12:44 | disposition home or self-care (01) ==
LOC: ED 10:30
DX: N30.00 Acute cystitis without hematuria (principal); B37.3 Candidiasis of vulva and vagina; E11.65 Type 2 diabetes mellitus with hyperglycemia; I25.10 Atherosclerotic heart disease of native coronary artery without angina pectoris; E78.5 Hyperlipidemia, unspecified; F41.1 Generalized anxiety disorder; K21.9 Gastro-esophageal reflux disease without esophagitis; I25.2 Old myocardial infarction; E78.00 Pure hypercholesterolemia, unspecified; M10.9 Gout, unspecified; J43.9 Emphysema, unspecified; I10 Essential (primary) hypertension; Z87.891 Personal history of nicotine dependence; Z86.73 Personal history of transient ischemic attack (TIA), and cerebral infarction without residual deficits
CPT/HCPCS: 71045; 81001; 87077; 87086; 87186; 93005; 99285

== ENCOUNTER 2018-07-16 10:46 | Emergency (ER) | payer OTHER ==
[~2018-07-16 10:46] MED LIST changes: +FLUCONAZOLE 100 MG TABLET PO ONE
[2018-07-16] MEDS ORDERED: SODIUM CHLORIDE 0.9% 1,000 ML IV ONE (11:39)
[2018-07-16] MEDS ORDERED: ONDANSETRON 2MG/ML, 2ML ONE (11:48)
[2018-07-16] MEDS ORDERED: SODIUM CHLORIDE FLUSH 10ML SYR IVF ONE (12:00)
[2018-07-16] MEDS ORDERED: ONDANSETRON 2MG/ML, 2ML IVPush ONE (12:00)
[2018-07-16 12:20] LABS: BASOPHILS # (AUTO) 0.01 x10^3/uL (0-0.1); BASOPHILS % (AUTO) 0 % (0-1); EOSINOPHILS # (AUTO) 0.11 x10^3/uL (0-0.4); EOSINOPHILS % (AUTO) 2 % (1-7); LYMPHOCYTES # (AUTO) 1.32 x10^3/uL (1-3.4); LYMPHOCYTES % (AUTO) 19 % (22-44); MD NO; MEAN CORPUSCULAR HEMOGLOBIN 28.2 pg (27.0-34.8); MEAN CORPUSCULAR HGB CONC 31.6 g/dL (32.4-35.8); MEAN CORPUSCULAR VOLUME 89.3 fL (80-100); MEAN PLATELET VOLUME 8.1 fL (7.4-10.4); MONOCYTES # (AUTO) 0.57 x10^3/uL (0.2-0.8); MONOCYTES % (AUTO) 8 % (2-9); NEUTROPHILS # (AUTO) 4.91 x10^3/uL (1.8-6.8); NEUTROPHILS % (AUTO) 71 % (42-75); PLATELET COUNT 343 x10^3/uL (130-400); RED BLOOD COUNT 4.06 x10^6/uL (3.82-5.3); RED CELL DISTRIBUTION WIDTH 18.7 % (9.6-15.2)
[2018-07-16 12:40] LABS: MICROSCOPIC INDICATED
[2018-07-16 12:41] LABS: CULTURE INDICATED? YES
[2018-07-16 12:51] LABS: CHLORIDE 106 mmol/L (98-107)
[2018-07-16 13:07] LABS: ALANINE AMINOTRANSFERASE 18 U/L (12-78); ALBUMIN 3.1 g/dL (3.4-5.0); ALKALINE PHOSPHATASE 118 U/L (45-117); ANION GAP 10 mmol/L (5-15); BILIRUBIN,TOTAL 0.4 mg/dL (0.2-1.0); CALCIUM 8.6 mg/dL (8.5-10.1); CREATININE 0.75 mg/dL (0.55-1.02); TOTAL PROTEIN 7.2 g/dL (6.4-8.2)
[2018-07-16] MEDS ORDERED: CEFTRIAXONE PMX 1GM/50ML 50 ML ONE (14:58)
[2018-07-16] MEDS ORDERED: CEFTRIAXONE 1,000 MG in SODIUM CHLORIDE 0.9% 50 ML IVPB ONE (15:00)
[2018-07-16] MEDS ORDERED: FLUCONAZOLE 100 MG TABLET ONE (15:07)
[2018-07-16 15:26] VITALS: BP 185/75
== END 2018-07-16 15:29 | disposition home or self-care (01) ==
LOC: ED 11:21
DX: N30.00 Acute cystitis without hematuria (principal); Z87.891 Personal history of nicotine dependence
CPT/HCPCS: 36415; 80053; 81001; 83690; 85025; 87077; 87086; 93005; 96374; 96375; 99285; J0696; J2405; J7030; 87186

== ENCOUNTER 2018-07-21 12:16 | Emergency (ER) | payer OTHER ==
[~2018-07-21] VITALS: Ht 157.5 cm; Wt 67.3 kg
[~2018-07-21 12:16] MED LIST changes: -FLUCONAZOLE 100 MG TABLET PO ONE
[2018-07-21] MEDS ORDERED: FOSFOMYCIN 3 GM PACKET PO ONE (14:00)
[2018-07-21 15:26] VITALS: BP 140/51
== END 2018-07-21 15:28 | disposition home or self-care (01) ==
LOC: ED 12:56
DX: N30.00 Acute cystitis without hematuria (principal); J44.9 Chronic obstructive pulmonary disease, unspecified; E78.00 Pure hypercholesterolemia, unspecified; I25.2 Old myocardial infarction; K21.9 Gastro-esophageal reflux disease without esophagitis; I11.0 Hypertensive heart disease with heart failure; I50.9 Heart failure, unspecified; E11.9 Type 2 diabetes mellitus without complications; Z90.49 Acquired absence of other specified parts of digestive tract; Z86.73 Personal history of transient ischemic attack (TIA), and cerebral infarction without residual deficits
CPT/HCPCS: 99283

== ENCOUNTER 2018-11-06 09:20 | Emergency (ER) | payer OTHER ==
[~2018-11-06] VITALS: Ht 154.9 cm; Wt 62.0 kg
[~2018-11-06 09:20] MED LIST changes: +AMLO-150 PO; -AMLO5TAB7 PO; -ASPI-621 PO; +ASPI81TA45 PO; -METR250T12 PO; +METR250T18 PO; +NITR100C56 PO
--- NOTE | 2018-11-06 10:19 | NUR ---
PT TO ED FOR R HIP PAIN RADIATING TO L HIP AND LOWER BACK X "A LONG TIME". HX OF R HIP REPLACEMENT 3 YEARS AGO. PT ALSO STATES HAS UTI, BUT UNABLE TO IDENTIFY ANY SYMPTOMS. CONNECTED TO MONITORS. EDILMA. TO BEDSIDE FOR ASSESSMENT. AWAITING ORDERS AT THIS TIME.
--- NOTE | 2018-11-06 10:50 | NUR ---
labs and ua collected. awaiting results at this time.
[2018-11-06 10:52] LABS: CULTURE INDICATED? YES; MICROSCOPIC INDICATED
[2018-11-06 11:02] LABS: BASOPHILS # (AUTO) 0.12 x10^3/uL (0-0.1); BASOPHILS % (AUTO) 1 % (0-1); EOSINOPHILS # (AUTO) 0.44 x10^3/uL (0-0.4); EOSINOPHILS % (AUTO) 3 % (1-7); LYMPHOCYTES # (AUTO) 2.58 x10^3/uL (1-3.4); LYMPHOCYTES % (AUTO) 20 % (22-44); MD NO; MEAN CORPUSCULAR HEMOGLOBIN 30.5 pg (27.0-34.8); MEAN CORPUSCULAR HGB CONC 31.7 g/dL (32.4-35.8); MEAN CORPUSCULAR VOLUME 96.2 fL (80-100); MEAN PLATELET VOLUME 7.7 fL (7.4-10.4); MONOCYTES # (AUTO) 1.19 x10^3/uL (0.2-0.8); MONOCYTES % (AUTO) 9 % (2-9); NEUTROPHILS # (AUTO) 8.46 x10^3/uL (1.8-6.8); NEUTROPHILS % (AUTO) 66 % (42-75); PLATELET COUNT 382 x10^3/uL (130-400); RED BLOOD COUNT 4.13 x10^6/uL (3.82-5.3); RED CELL DISTRIBUTION WIDTH 13.5 % (9.6-15.2)
[2018-11-06 11:08] LABS: ALBUMIN 3.3 g/dL (3.4-5.0); ANION GAP 6 mmol/L (5-15); CALCIUM 8.2 mg/dL (8.5-10.1); CHLORIDE 113 mmol/L (98-107)
--- NOTE | 2018-11-06 11:09 | NUR ---
Johnson ramon in [facility] - 11/06/18 at 1109 [address] [email or web address] PT [address]
--- NOTE | 2018-11-06 11:27 | NUR ---
all results back at this time. chart up for recheck.
[2018-11-06] MEDS ORDERED: FOSFOMYCIN 3 GM PACKET ONE (11:55)
[2018-11-06] MEDS ORDERED: FOSFOMYCIN 3 GM PACKET PO ONE (12:00)
[2018-11-06 12:07] VITALS: BP 149/102
--- NOTE | 2018-11-06 12:08 | NUR ---
TO BEDSDIDE TO UPDATE ON POC. AWAITING DISPO.
== END 2018-11-06 12:38 | disposition home or self-care (01) ==
LOC: ED 12:32
DX: N30.00 Acute cystitis without hematuria (principal); I25.10 Atherosclerotic heart disease of native coronary artery without angina pectoris; I11.0 Hypertensive heart disease with heart failure; I50.9 Heart failure, unspecified; E78.5 Hyperlipidemia, unspecified; E11.9 Type 2 diabetes mellitus without complications; K21.9 Gastro-esophageal reflux disease without esophagitis; I25.2 Old myocardial infarction; E78.00 Pure hypercholesterolemia, unspecified; J44.9 Chronic obstructive pulmonary disease, unspecified; Z86.73 Personal history of transient ischemic attack (TIA), and cerebral infarction without residual deficits; Z90.49 Acquired absence of other specified parts of digestive tract
CPT/HCPCS: 36415; 80048; 81001; 82040; 85025; 87077; 87086; 87186; 99283

== ENCOUNTER 2018-11-20 16:16 | Inpatient (IN) | payer MEDICARE ==
[~2018-11-20] VITALS: Ht 154.9 cm; Wt 76.4 kg
[~2018-11-20 16:16] MED LIST changes: +SENN-177 PO; -SENN1TAB8 PO
[2018-11-20] MEDS ORDERED: ASPIRIN 81 MG TABLET CHEW ONE (16:54)
[2018-11-20] MEDS ORDERED: ASPIRIN 81 MG TABLET CHEW PO ONE (17:00)
[2018-11-20] MEDS: PLEASE ENTER WEIGHT MC SCH (17:00)
[2018-11-20] MEDS ORDERED: SODIUM CHLORIDE FLUSH 10ML SYR IVF ONE (17:00)
[2018-11-20 17:21] LABS: BASOPHILS # (AUTO) 0.01 x10^3/uL (0-0.1); BASOPHILS % (AUTO) 0 % (0-1); EOSINOPHILS % (AUTO) 2 % (1-7); LYMPHOCYTES # (AUTO) 1.48 x10^3/uL (1-3.4); LYMPHOCYTES % (AUTO) 15 % (22-44); MD NO; MEAN CORPUSCULAR HEMOGLOBIN 30.3 pg (27.0-34.8); MEAN CORPUSCULAR HGB CONC 31.5 g/dL (32.4-35.8); MEAN CORPUSCULAR VOLUME 96.3 fL (80-100); MEAN PLATELET VOLUME 8.1 fL (7.4-10.4); MONOCYTES % (AUTO) 10 % (2-9); NEUTROPHILS # (AUTO) 7.46 x10^3/uL (1.8-6.8); NEUTROPHILS % (AUTO) 74 % (42-75); PLATELET COUNT 380 x10^3/uL (130-400); RED BLOOD COUNT 3.85 x10^6/uL (3.82-5.3)
[2018-11-20 17:34] LABS: ALBUMIN 2.8 g/dL (3.4-5.0); ANION GAP 9 mmol/L (5-15); CALCIUM 8.5 mg/dL (8.5-10.1); CHLORIDE 109 mmol/L (98-107); CREATININE 1.04 mg/dL (0.55-1.02)
[2018-11-20 17:42] LABS: TROPONIN I 0.351 ng/mL (0.000-0.045)
--- NOTE | 2018-11-20 18:05 | NUR ---
RESTING DENIES ANY PAIN AT THIS TIME
[2018-11-20] MEDS ORDERED: METHOCARBAMOL 500 MG TABLET PO PRN (19:00)
[2018-11-20] MEDS ORDERED: POLYETHYLENE GLYCOL 17 GM PACKET PO PRN (19:00)
[2018-11-20] MEDS: HEPARIN 5,000 UNITS/ML, 1ML SQ SCH (19:00)
[2018-11-20] MEDS ORDERED: BISACODYL 10 MG SUPP PR PRN (19:00)
[2018-11-20] MEDS ORDERED: ACETAMINOPHEN 325 MG TABLET PO PRN (19:00)
[2018-11-20] MEDS ORDERED: GABAPENTIN 100 MG CAPSULE PO PRN (19:00)
[2018-11-20] MEDS ORDERED: NITROGLYCERIN 0.4 MG BOTTLE (25 TABS) SL PRN (19:00)
[2018-11-20] MEDS ORDERED: ONDANSETRON ODT 4 MG PO PRN (19:00)
--- NOTE | 2018-11-20 19:00 | NUR ---
MEAL TRAY GIVEN, PT ON MANAGER OF FINANCIAL
[2018-11-20 19:03] LABS: CULTURE INDICATED? YES; MICROSCOPIC INDICATED
[2018-11-20 19:41] LABS: HEMOGLOBIN A1C 6.4 % (4.2-6.3)
--- NOTE | 2018-11-20 20:44 | NUR ---
PT GIVEN PILLOW AND WARM BLANKET,AWARE OF POC, SPOKE WITH SON MARIAN AND UPDATED HIM WELL
[2018-11-20] MEDS: TICAGRELOR 90 MG TABLET PO SCH (21:00)
[2018-11-20] MEDS: SODIUM CHLORIDE FLUSH 10ML SYR IVF SCH (21:00)
[2018-11-20] MEDS ORDERED: ATORVASTATIN 40 MG TABLET PO SCH (21:00)
[2018-11-20] MEDS: ASCORBIC ACID 500 MG TABLET PO SCH (21:00)
[2018-11-20] MEDS: METOPROLOL TARTRATE 50 MG TABLET PO SCH (21:00)
--- NOTE | 2018-11-20 22:01 | NUR ---
PT RESTING IN BED. NADN AT THIS TIME. PT GIVEN BEAR PAW HEATER AND SHOWN HOW TO ADJUST TO KEEP WARM. PT VERY HAPPY WITH HEATER.
--- NOTE | 2018-11-20 22:04 | NUR ---
PTS MEDICATIONS REQUESTED FROM PHARMACY AT THIS TIME.
[2018-11-20] MEDS ORDERED: HEPARIN 5,000 UNITS/ML, 1ML ONE (22:13)
[2018-11-20] MEDS ORDERED: METOPROLOL TARTRATE 50 MG TABLET ONE (22:13)
--- NOTE | 2018-11-20 22:25 | NUR ---
PT TAKEN TO RESTROOM. PT MEDICATED PER [facility]. GIVE H20/
[2018-11-20 23:08] LABS: TROPONIN I 0.424 ng/mL (0.000-0.045)
--- NOTE | 2018-11-20 23:46 | NUR ---
PT RESTING, VSS. ON HOSPITAL BED.
--- NOTE | 2018-11-21 00:09 | NUR ---
REPORT TO KARL ASHTON
[2018-11-21] MEDS: PLEASE ENTER WEIGHT MC SCH ×2 (01:00→09:00)
--- NOTE | 2018-11-21 01:01 | NUR ---
PT. REPORTS PAIN IN HER RIGHT HIP/LOWER BACK/AND LEFT HIP WOKE HER FROM SLEEP; SHE STATES THIS IS CHRONIC IN NATURE. PT. VERY TEARFUL AND REQUESTING SOMETHING FOR PAIN.
[2018-11-21] MEDS ORDERED: MORPHINE SULFATE 4 MG/ML, 1ML ONE ×2 (01:13→02:19)
[2018-11-21] MEDS: morphine SULFATE 10 MG/ML, 1ML IVPush PRN ×4 (01:16→02:47)
--- NOTE | 2018-11-21 01:22 | NUR ---
PT. MEDICATED WITH PRN MORPHINE 2MGIV PER NOV. DENIES OTHER NEEDS. ASSISTED TO POSITION OF COMFORT.
[2018-11-21] MEDS ORDERED: HEPARIN 5,000 UNITS/ML, 1ML ONE ×2 (02:21→12:50)
[2018-11-21] MEDS: HEPARIN 5,000 UNITS/ML, 1ML SQ SCH (02:31)
--- NOTE | 2018-11-21 02:35 | NUR ---
PT. MEDICATED PER NOV FOR CONTINUED 04/20 HIP/BREAST PAIN. PT. HAD BEEN ASSISTED TO BR VIA PERSONAL W/C BY BREAK RN WHILE THIS RN WAS ON LUNCH. PT. REPORTS PAIN CAME BACK AFTER THIS. PT. DENIES OTHER NEEDS. AT THIS TIME. CALL LIGHT IN REACH. ALL SAFETY MEASURES OBSERVED.
--- NOTE | 2018-11-21 03:07 | NUR ---
PT. WAS MEDICATED WITH ALLOWED DOSE OF MORPHINE IN 3 HOURS. PT. NOW RESTING ON BED WITH EYES CLOSED. MONITORS REMAIN IN PLACE. EVEN, NON-LABORED RESP VISIBLE. CALL LIGHT IN REACH.
--- NOTE | 2018-11-21 05:10 | NUR ---
PT. VS UPDATED. PT. AWAKE SITTING IN BED. STATES "I AM FEELING MUCH BETTER AFTER THE MEDICINE, THANK YOU". PT. STATES "MY HIPS DON'T HURT ANYMORE". BUT STATES "I STILL HAVE SOME PAIN THERE IT'S MUCH BETTER THOUGH". PT. DENIES NEEDS. CALL LIGHT IN REACH. MONITORS REMAIN IN PLACE. ALL SAFETY MEASURES OBSERVED. PT. IS AWARE OF NPO STATUS.
[2018-11-21 05:50] LABS: BASOPHILS # (AUTO) 0.12 x10^3/uL (0-0.1); BASOPHILS % (AUTO) 1 % (0-1); EOSINOPHILS # (AUTO) 0.19 x10^3/uL (0-0.4); EOSINOPHILS % (AUTO) 2 % (1-7); LYMPHOCYTES # (AUTO) 1.51 x10^3/uL (1-3.4); LYMPHOCYTES % (AUTO) 14 % (22-44); MD NO; MEAN CORPUSCULAR HEMOGLOBIN 31.6 pg (27.0-34.8); MEAN CORPUSCULAR HGB CONC 33.2 g/dL (32.4-35.8); MEAN CORPUSCULAR VOLUME 95.1 fL (80-100); MEAN PLATELET VOLUME 8.1 fL (7.4-10.4); MONOCYTES # (AUTO) 1.21 x10^3/uL (0.2-0.8); MONOCYTES % (AUTO) 11 % (2-9); NEUTROPHILS # (AUTO) 7.88 x10^3/uL (1.8-6.8); NEUTROPHILS % (AUTO) 72 % (42-75); PLATELET COUNT 372 x10^3/uL (130-400); RED BLOOD COUNT 3.64 x10^6/uL (3.82-5.3)
[2018-11-21 06:02] LABS: ALBUMIN 2.6 g/dL (3.4-5.0); ANION GAP 8 mmol/L (5-15); CALCIUM 8.5 mg/dL (8.5-10.1); CHLORIDE 110 mmol/L (98-107)
[2018-11-21 06:08] LABS: ALANINE AMINOTRANSFERASE 21 U/L (12-78); ALKALINE PHOSPHATASE 148 U/L (45-117); BILIRUBIN,TOTAL 0.7 mg/dL (0.2-1.0); CREATININE 0.92 mg/dL (0.55-1.02); TOTAL PROTEIN 6.6 g/dL (6.4-8.2); TROPONIN I 0.335 ng/mL (0.000-0.045)
--- NOTE | 2018-11-21 06:59 | NUR ---
received report from Carol. pt upright on gurney awake & comfortable, responds approp to staff, NAD, comfort measures provided, call light within reach.
--- NOTE | 2018-11-21 08:00 | NUR ---
cardiac rhythm strip printed and placed on chart
[2018-11-21 08:55] LABS: INTERNATIONAL NORMALIZED RATIO 0.97 (0.93-1.1); PROTHROMBIN TIME 10.2 Seconds (9.6-11.5)
[2018-11-21] MEDS ORDERED: ASPIRIN 81 MG TABLET CHEW PO SCH (09:00)
[2018-11-21] MEDS: ASCORBIC ACID 500 MG TABLET PO SCH (09:00)
[2018-11-21] MEDS ORDERED: SENNA/DOCUSATE TABLET PO SCH (09:00)
[2018-11-21] MEDS ORDERED: CLOPIDOGREL 75 MG TABLET PO SCH (09:00)
[2018-11-21] MEDS ORDERED: AMLODIPINE 5 MG TABLET PO SCH (09:00)
[2018-11-21] MEDS: TICAGRELOR 90 MG TABLET PO SCH (09:00)
[2018-11-21] MEDS ORDERED: ALLOPURINOL 100 MG TABLET PO SCH (09:00)
[2018-11-21] MEDS ORDERED: ANASTROZOLE 1 MG TABLET PO SCH (09:00)
[2018-11-21] MEDS ORDERED: LISINOPRIL 20 MG TABLET PO SCH (09:00)
[2018-11-21] MEDS ORDERED: VITAMIN E 400 UNITS CAPSULE PO SCH (09:00)
--- NOTE | 2018-11-21 09:01 | NUR ---
pt c/o feeling anxious- redirection/reassurance helpful, then pt ambulated to BR via personal WC, back to bed awake & comfortable, responds approp to staff, NAD, comfort measures provided, call light within reach. pt to remain NPO (except sips of water for meds) per [facility].
--- NOTE | 2018-11-21 09:45 | NUR ---
reviewed updated med rec with ana Beckham to continue home med list (except hold metformin, arimidex & statin at this time), start heparin gtt per [facility] protocol.
--- NOTE | 2018-11-21 09:45 | NUR ---
verbal order from Dr Worthington: NS @ 50ml/hr while NPO.
[2018-11-21] MEDS ORDERED: VITA1CAP7 PO (09:50)
[2018-11-21] MEDS ORDERED: BUPR100T11 PO (09:50)
[2018-11-21] MEDS ORDERED: LOVA20TA2 PO (09:50)
[2018-11-21] MEDS ORDERED: PANT40TA5 PO (09:50)
[2018-11-21] MEDS ORDERED: ALBU2.5V NEB (09:50)
[2018-11-21] MEDS ORDERED: COLC0.6T37 PO (09:50)
[2018-11-21] MEDS ORDERED: ALBU90AE INH (09:50)
[2018-11-21] MEDS ORDERED: CLOP75TA PO (09:50)
[2018-11-21] MEDS ORDERED: NITR0.4T28 SL (09:50)
--- NOTE | 2018-11-21 09:50 | NUR ---
pt transferred to room 37 via hospital bed.
--- NOTE | 2018-11-21 10:05 | NUR ---
pt upright on gurney awake & comfortable, responds approp to staff, NAD, comfort measures provided, call light within reach.
--- NOTE | 2018-11-21 10:13 | NUR ---
printed cardiac rhythm strip and list of vitals for pt and placed on chart.
[2018-11-21] MEDS ORDERED: BUPROPION SR 100 MG TABLET PO SCH (10:30)
[2018-11-21] MEDS ORDERED: LISINOPRIL 20 MG TABLET ONE (10:30)
[2018-11-21] MEDS ORDERED: SENNA/DOCUSATE TABLET ONE (10:30)
[2018-11-21] MEDS ORDERED: COLCHICINE 0.6 MG TABLET PO PRN (10:30)
[2018-11-21] MEDS ORDERED: AMLODIPINE 5 MG TABLET ONE (10:30)
[2018-11-21] MEDS ORDERED: HYDROcodone/APAP 10/325 MG TABLET PO PRN (10:30)
[2018-11-21] MEDS ORDERED: CLOPIDOGREL 75 MG TABLET ONE (10:30)
[2018-11-21] MEDS ORDERED: METOPROLOL TARTRATE 50 MG TABLET ONE (10:31)
--- NOTE | 2018-11-21 10:59 | NUR ---
pt remains upright on gurney awake & comfortable, responds approp to staff, NAD, comfort measures provided, call light within reach.
[2018-11-21] MEDS ORDERED: HEPARIN 5,000 UNITS/ML, 1ML IV ONE (11:30)
[2018-11-21] MEDS ORDERED: HEPARIN 25,000 UNITS/500ML PMX 500 ML IV PRN (11:30)
[2018-11-21] MEDS ORDERED: HEPARIN 5,000 UNITS/ML, 1ML IV PRN (11:30)
[2018-11-21] MEDS: METOPROLOL TARTRATE 50 MG TABLET PO SCH (11:43)
[2018-11-21] MEDS: SODIUM CHLORIDE FLUSH 10ML SYR IVF SCH (11:44)
--- NOTE | 2018-11-21 12:01 | NUR ---
pt upright on hospital bed awake & comfortable, responds approp to staff, NAD, comfort measures provided, call light within reach.
--- NOTE | 2018-11-21 12:08 | NUR ---
spoke to Dr Worthington to clarify one-time heparin at 1130 & UA result; he will review chart to determine approp Abx Tx, to hold one-time heparin dose at 1130 & continue heparin [facility] protocol when Anti-Xa resulted.
[2018-11-21] MEDS ORDERED: REGADENOSON 0.4 MG/5 ML SYRINGE ONE (12:35)
--- NOTE | 2018-11-21 12:37 | NUR ---
report given to Tu ASHTON
--- NOTE | 2018-11-21 12:45 | NUR ---
[facility] BEDSIDE HAND-OFF REPORT RECEIVED FROM POLI VASQUEZ. ASSUMING CARE OF PATIENT.
[2018-11-21] MEDS ORDERED: HEPARIN 25,000 UNITS/500ML PMX 500 ML ONE (12:50)
[2018-11-21] MEDS ORDERED: SODIUM CHLORIDE 0.9% 1,000 ML IV SCH (13:00)
--- NOTE | 2018-11-21 13:44 | NUR ---
[facility] TELEPHONE HAND-OFF REPORT TO RN JOLIE.
--- NOTE | 2018-11-21 14:22 | NUR ---
PT STILL REMAINS IN [facility] FOR STRESS TEST, THEREFORE UNABLE TO START HEPARIN DRIP AND GIVEN REMANDER OF HER AM MEDS THAT WEREN'T GIVEN EARLIER. NUC MED TO TAKE PATIENT UP TO HER HOSPITAL ROOM WHEN DONE WITH STRESS TEST. CALLED TELE AND LEFT MESSAGE FOR RN JOLIE THAT PATIENT WILL BE COMING UP DIRECTLY AFTER HER STRESS TEST AND THAT HEPARIN DRIP WILL NEED TO BE STARTED AFTER SHE ARRIVES, I WAS UNABLE TO START IT HERE. VINCENT IN NUC MED STATES THAT PATIENT HAS ONE PART OF TEST COMPLETE AND ONE REMAINING. REQUESTED THAT SHE TAKE PATIENT UP TO HER HOSPITAL ROOM AFTER TEST AND SHE AGREED.
[2018-11-21] MEDS ORDERED: GABAPENTIN 100 MG CAPSULE PO SCH (16:00)
[2018-11-21 16:34] VITALS: BP 108/64
[2018-11-21] MEDS ORDERED: ASPI81TA45 PO (16:52)
[2018-11-21] MEDS ORDERED: NITR0.4T SL (16:52)
[2018-11-21] MEDS ORDERED: ATOR40TA78 PO (16:52)
[2018-11-21] MEDS ORDERED: SULF-169 PO (17:11)
[2018-11-21] MEDS ORDERED: SULFAMETH./TRIMETHOPRIM DS 800MG/160MG TABLET PO SCH (21:00)
[2018-11-22] MEDS ORDERED: ASPIRIN 81 MG TABLET EC PO SCH (06:00)
[2018-11-22] MEDS ORDERED: PANTOPRAZOLE 20MG TABLET PO SCH (09:00)
== END 2018-11-21 19:06 | disposition home or self-care (01) | DRG 313 ==
LOC: ED 18:59 → EDIP 19:00 → 5SO 11-21 14:55
PROVIDERS: ADMIT Family Medicine; ATTEND Family Medicine
DX: R07.89 Other chest pain (principal); N39.0 Urinary tract infection, site not specified; E44.0 Moderate protein-calorie malnutrition; E87.2 Acidosis; I50.22 Chronic systolic (congestive) heart failure; J96.11 Chronic respiratory failure with hypoxia; J98.11 Atelectasis; I25.9 Chronic ischemic heart disease, unspecified; E11.43 Type 2 diabetes mellitus with diabetic autonomic (poly)neuropathy; E78.00 Pure hypercholesterolemia, unspecified; E78.5 Hyperlipidemia, unspecified; F41.1 Generalized anxiety disorder; I11.0 Hypertensive heart disease with heart failure; I25.10 Atherosclerotic heart disease of native coronary artery without angina pectoris; I25.2 Old myocardial infarction; J44.9 Chronic obstructive pulmonary disease, unspecified; K21.9 Gastro-esophageal reflux disease without esophagitis; K27.9 Peptic ulcer, site unspecified, unspecified as acute or chronic, without hemorrhage or perforation; R00.0 Tachycardia, unspecified; K31.84 Gastroparesis; M10.9 Gout, unspecified; Z66 Do not resuscitate; Z82.5 Family history of asthma and other chronic lower respiratory diseases; Z85.3 Personal history of malignant neoplasm of breast; Z86.73 Personal history of transient ischemic attack (TIA), and cerebral infarction without residual deficits; Z87.11 Personal history of peptic ulcer disease; Z87.440 Personal history of urinary (tract) infections; Z87.442 Personal history of urinary calculi; Z87.891 Personal history of nicotine dependence; Z95.5 Presence of coronary angioplasty implant and graft; Z96.641 Presence of right artificial hip joint; Z99.81 Dependence on supplemental oxygen; Z68.31 Body mass index [BMI] 31.0-31.9, adult; Z90.49 Acquired absence of other specified parts of digestive tract
CPT/HCPCS: 36415; 71045; 78452; 80048; 80053; 81001; 82040; 83036; 83880; 84484; 85025; 85520; 85610; 85730; 87086; 93005; 93017; 96372; 96374; J1644; J2785; A9502; C9898; J2270

== ENCOUNTER → 2018-11-29 | Outpatient (CLI) | payer MEDICARE, OTHER ==
[~2018-11-29] MED LIST changes: +ALBU2.5V NEB; +ALBU90AE INH; +NITR0.4T28 SL; +VITA1CAP7 PO
== END | disposition home or self-care (01) ==
LOC: CFH 12:57
PROVIDERS: ATTEND Internal Medicine Hematology & Oncology
DX: C50.412 Malignant neoplasm of upper-outer quadrant of left female breast (principal)
CPT/HCPCS: 76641; 77066; G0279

== ENCOUNTER 2018-12-07 01:21 | Observation (INO) | payer MEDICARE ==
[~2018-12-07] VITALS: Ht 154.9 cm; Wt 68.6 kg
--- NOTE | 2018-12-07 01:34 | NUR ---
BIB [facility] FROM HOME FOR C/O 03/20 SUBSTERNAL CP X 1 WEEK INTERMITTENT BUT WAKING PT. FROM SLEEP TONIGHT. PT. REPORTS OVER THE LAST 3 DAYS SHE HAS TAKEN 1 NITRO TAB EACH DAY AND 4 ASPIRIN TODAY. DENIES RADIATION OF PAIN. 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 DENIES ANY PAIN AT THIS TIME. DR. CHATMAN AT FOR EVAL. EKG COMPLETED AND PRESENTED TO HIM. ALL MONITORS IN PLACE. CALL LIGHT IN REACH.
[2018-12-07 01:57] LABS: BASOPHILS # (AUTO) 0.04 x10^3/uL (0-0.1); BASOPHILS % (AUTO) 1 % (0-1); EOSINOPHILS # (AUTO) 0.68 x10^3/uL (0-0.4); EOSINOPHILS % (AUTO) 10 % (1-7); LYMPHOCYTES # (AUTO) 1.72 x10^3/uL (1-3.4); LYMPHOCYTES % (AUTO) 25 % (22-44); MD NO; MEAN CORPUSCULAR HEMOGLOBIN 29.8 pg (27.0-34.8); MEAN CORPUSCULAR HGB CONC 31.5 g/dL (32.4-35.8); MEAN CORPUSCULAR VOLUME 94.4 fL (80-100); MEAN PLATELET VOLUME 7.6 fL (7.4-10.4); MONOCYTES # (AUTO) 0.87 x10^3/uL (0.2-0.8); MONOCYTES % (AUTO) 13 % (2-9); NEUTROPHILS # (AUTO) 3.46 x10^3/uL (1.8-6.8); NEUTROPHILS % (AUTO) 51 % (42-75); PLATELET COUNT 435 x10^3/uL (130-400); RED BLOOD COUNT 3.36 x10^6/uL (3.82-5.3); RED CELL DISTRIBUTION WIDTH 14.1 % (9.6-15.2)
[2018-12-07] MEDS ORDERED: SODIUM CHLORIDE FLUSH 10ML SYR IVF ONE (02:00)
[2018-12-07 02:07] LABS: ALANINE AMINOTRANSFERASE 17 U/L (12-78); ALBUMIN 2.9 g/dL (3.4-5.0); ANION GAP 6 mmol/L (5-15); CALCIUM 8.8 mg/dL (8.5-10.1); CHLORIDE 113 mmol/L (98-107); CREATININE 0.86 mg/dL (0.55-1.02)
[2018-12-07 02:11] LABS: ALKALINE PHOSPHATASE 131 U/L (45-117); BILIRUBIN,TOTAL 0.2 mg/dL (0.2-1.0); TOTAL PROTEIN 7.2 g/dL (6.4-8.2); TROPONIN I < 0.015 ng/mL (0.000-0.045)
[2018-12-07] MEDS ORDERED: CHOL100011 PO (02:43)
--- NOTE | 2018-12-07 03:29 | NUR ---
PT. RESTING ON GURNEY WITH NADN. ALL MONITORS REMAIN IN PLACE. CALL LIGHT IN REACH. ALL SAFETY MEASURES MAINTAINED.
--- NOTE | 2018-12-07 04:26 | NUR ---
PT. ASSISTED TO COMMODE AND BACK TO [facility]. WARM BLANKETS PROVIDED. PT. AWARE OF BEING HELD IN ED. VS HAVE BEEN UPDATED AND REMAIN STABLE. PT. STEADY ON HER OWN FEET. REPORTS SHE DOES USE W/C AT HOME THOUGH. PT. DENIES ANY PAIN/DISCOMFOT. CONTINUOUS PUSLE OX AND HEART MONITORS REMAIN IN PLACE. CALL LIGHT IN REACH. URINE SENT TO LAB.
[2018-12-07 04:45] LABS: CULTURE INDICATED? YES; MICROSCOPIC INDICATED
--- NOTE | 2018-12-07 05:04 | NUR ---
Eddi Combs [phone]
[2018-12-07] MEDS ORDERED: NITROGLYCERIN 0.4 MG/SPRAY SL PRN (05:30)
[2018-12-07] MEDS ORDERED: COLCHICINE 0.6 MG TABLET PO PRN (05:30)
[2018-12-07] MEDS ORDERED: ONDANSETRON 2MG/ML, 2ML IVPush PRN (05:30)
[2018-12-07] MEDS ORDERED: HYDROcodone/APAP 10/325 MG TABLET PO PRN (05:30)
[2018-12-07] MEDS ORDERED: LABETALOL 5MG/ML, 20ML IVPush PRN (05:30)
[2018-12-07] MEDS ORDERED: morphine SULFATE 10 MG/ML, 1ML IVPush PRN (05:30)
[2018-12-07] MEDS ORDERED: METHOCARBAMOL 500 MG TABLET PO PRN (05:30)
[2018-12-07] MEDS ORDERED: BENZONATATE 100 MG CAPSULE PO PRN (05:30)
[2018-12-07] MEDS ORDERED: NITROGLYCERIN 0.4 MG BOTTLE (25 TABS) SL PRN (05:30)
[2018-12-07] MEDS ORDERED: ASPIRIN 81 MG TABLET EC PO SCH (06:00)
[2018-12-07] MEDS ORDERED: ASPIRIN 81 MG TABLET EC ONE (06:05)
[2018-12-07] MEDS ORDERED: HEPARIN 5,000 UNITS/ML, 1ML ONE (06:05)
[2018-12-07] MEDS: HEPARIN 5,000 UNITS/ML, 1ML SQ SCH ×2 (06:11→13:55)
--- NOTE | 2018-12-07 06:13 | NUR ---
PT. RESTING ON GURNEY WITH NADN. PT. TO GET BED ASSIGNMENT UPSTAIRS AT SHIFT CHANGE. PT. MEDICATED PER NOV. DENIES NEEDS AT THIS TIME. VS UPDATED. MONITORS REMAIN IN PLACE. ALL SAFETY MEASUERS OBSERVED.
[2018-12-07 06:28] LABS: TROPONIN I < 0.015 ng/mL (0.000-0.045)
--- NOTE | 2018-12-07 06:36 | NUR ---
PT. ASSISTED TO COMMODE AND BACK TO [facility]. MONITORS REPLACED. DENIES OTHER NEEDS. ALEK PAW WARMER IN USE FOR PT. COMFORT.
[2018-12-07] MEDS ORDERED: CEFTRIAXONE PMX 1GM/50ML 50 ML IV SCH (07:00)
--- NOTE | 2018-12-07 07:08 | NUR ---
BS REPORT TO POLI MERRILL.
--- NOTE | 2018-12-07 07:11 | NUR ---
RECEIVED BEDSIDE REPORT FROM POLI CRUZ. AWAITING TELE BED
--- NOTE | 2018-12-07 07:33 | NUR ---
REPORT TO POLI ROBBINS. ALL QUESTIONS ANSWERED.
--- NOTE | 2018-12-07 07:44 | NUR ---
PT TRANSFERRED TO FLOOR. PT LEFT WITH ALL PERSONAL BELONGINGS.
[2018-12-07 08:15] VITALS: BP 149/75
[2018-12-07] MEDS ORDERED: ALBUTEROL SULFATE 2.5 MG/3 ML NPPB SCH (09:00)
[2018-12-07] MEDS ORDERED: AZITHROMYCIN 500 MG TABLET PO SCH (09:00)
[2018-12-07] MEDS ORDERED: AMLODIPINE 5 MG TABLET PO SCH (09:00)
[2018-12-07] MEDS ORDERED: ALLOPURINOL 100 MG TABLET PO SCH (09:00)
[2018-12-07] MEDS ORDERED: METOPROLOL TARTRATE 50 MG TABLET PO SCH (09:00)
[2018-12-07] MEDS ORDERED: CLOPIDOGREL 75 MG TABLET PO SCH (09:00)
[2018-12-07] MEDS ORDERED: GABAPENTIN 100 MG CAPSULE PO SCH (09:00)
[2018-12-07] MEDS ORDERED: ASCORBIC ACID 500 MG TABLET PO SCH (09:00)
[2018-12-07] MEDS ORDERED: BUPROPION 100 MG TABLET PO SCH (09:00)
[2018-12-07] MEDS ORDERED: PANTOPROZOLE 40MG TABLET PO SCH (09:00)
[2018-12-07] MEDS ORDERED: ANASTROZOLE 1 MG TABLET PO SCH (09:00)
[2018-12-07] MEDS: LISINOPRIL 20 MG TABLET PO SCH ×2 (09:26→09:30)
[2018-12-07 09:35] VITALS: BP 149/75
[2018-12-07] MEDS ORDERED: FUROSEMIDE 20 MG/2 ML IV ONE (11:30)
[2018-12-07 11:51] LABS: TROPONIN I < 0.015 ng/mL (0.000-0.045)
[2018-12-07 12:12] VITALS: BP 135/71
[2018-12-07] MEDS ORDERED: LISI-170 PO (12:18)
[2018-12-07] MEDS ORDERED: PANT40TA5 PO ×3 (12:18→12:27)
[2018-12-07] MEDS ORDERED: ISOS30TA8 PO (12:18)
[2018-12-07] MEDS ORDERED: CEFD300C37 PO (12:18)
[2018-12-07] MEDS ORDERED: ISOSORBIDE MONONITRATE ER 30 MG TABLET PO SCH (12:30)
[2018-12-07 13:54] VITALS: BP 135/75
[2018-12-07] MEDS ORDERED: ATORVASTATIN 40 MG TABLET PO SCH (21:00)
== END 2018-12-07 14:50 | disposition home health service (06) ==
LOC: ED 02:30 → EDIP 03:29 → INTOOBSV 03:29 → 5SO 07:48 → DCLOUNGE 14:09
PROVIDERS: ADMIT Family Medicine; ATTEND Family Medicine
DX: R07.89 Other chest pain (principal); J44.1 Chronic obstructive pulmonary disease with (acute) exacerbation; D64.9 Anemia, unspecified; K21.9 Gastro-esophageal reflux disease without esophagitis; M10.9 Gout, unspecified; G45.9 Transient cerebral ischemic attack, unspecified; N39.0 Urinary tract infection, site not specified; E44.0 Moderate protein-calorie malnutrition; I50.22 Chronic systolic (congestive) heart failure; E11.43 Type 2 diabetes mellitus with diabetic autonomic (poly)neuropathy; E78.00 Pure hypercholesterolemia, unspecified; E78.5 Hyperlipidemia, unspecified; I11.0 Hypertensive heart disease with heart failure; I25.10 Atherosclerotic heart disease of native coronary artery without angina pectoris; I25.2 Old myocardial infarction; Z85.3 Personal history of malignant neoplasm of breast; Z86.73 Personal history of transient ischemic attack (TIA), and cerebral infarction without residual deficits; Z87.11 Personal history of peptic ulcer disease; Z87.440 Personal history of urinary (tract) infections
CPT/HCPCS: 36415; 71045; 80053; 81001; 83880; 84484; 85025; 87086; 93005; 94640; 96365; 96372; 96375; 99285; G0378; J0696; J1644; J1940; J7512; J7613

== ENCOUNTER 2019-03-17 00:37 | Emergency (ER) | payer MEDICARE ==
[~2019-03-17] VITALS: Ht 154.9 cm; Wt 70.0 kg
[~2019-03-17 00:37] MED LIST changes: +CHOL100011 PO; +ISOS30TA8 PO; -NITR0.4T SL; +NITR0.4T41 SL
[2019-03-17] MEDS ORDERED: HYDROcodone/APAP 5/325 TABLET PO ONE (01:00)
[2019-03-17] MEDS ORDERED: ONDANSETRON ODT 4 MG ONE (01:12)
[2019-03-17] MEDS ORDERED: HYDROcodone/APAP 5/325 TABLET ONE (01:13)
[2019-03-17] MEDS ORDERED: ONDANSETRON ODT 4 MG PO ONE (01:30)
--- NOTE | 2019-03-17 02:04 | NUR ---
AFTER AN EXTENSIVE CONVERSATION ABOUT HOSPICE PT AGREEABLE TO [facility] AND REMAIN ON HOSPICE.
[2019-03-17 02:11] VITALS: BP 139/84
[2019-03-17] MEDS ORDERED: HYDR25TA11 PO (11:30)
[2019-03-17] MEDS ORDERED: ATOR40TA PO (11:30)
[2019-03-17] MEDS ORDERED: DOCU100C33 PO (11:30)
[2019-03-17] MEDS ORDERED: ISOS5TAB PO (11:30)
== END 2019-03-17 02:12 ==
LOC: ED 01:19
DX: M54.5 Low back pain (principal); M25.551 Pain in right hip; E11.9 Type 2 diabetes mellitus without complications; I25.2 Old myocardial infarction; I11.0 Hypertensive heart disease with heart failure; I50.9 Heart failure, unspecified; E78.00 Pure hypercholesterolemia, unspecified; Z90.49 Acquired absence of other specified parts of digestive tract; Z86.73 Personal history of transient ischemic attack (TIA), and cerebral infarction without residual deficits; Z90.89 Acquired absence of other organs; Z87.891 Personal history of nicotine dependence; E78.5 Hyperlipidemia, unspecified
CPT/HCPCS: 99283; Q0162